=== PATIENT | female | born 2000 | race Caucasian/White ===

== ENCOUNTER 2024-08-17 15:18 | Outpatient (OUT) | payer BC, SELFPAY ==
--- OUTSIDE RECORDS SUMMARY | 2024-08-17 15:32 | XMS_ITS | CCD ---
Author Organization [facility] Care Team Providers Care Designer/Writer Name Role Phone Marylu MARLEY Ellen Froy Primary Care Provider MARYLU ELLEN L Primary Care Physician Rae Mendez Admitting Unavailable Rae Mendez Attending Unavailable Wale Guerrero Attending Unavailable Rae Mendez Attending Unavailable Kristopher GLASS Attending Unavailable Wale Guerrero Admitting Unavailable Wale Guerrero Attending Unavailable Yonley DO, Ellen L Primary Care Provider YONLEY, ELLEN L Referring Unavailable YONLEY, ELLEN L Primary Care Unavailable YONLEY, ELLEN L Referring Unavailable YONLEY, ELLEN L Primary Care Unavailable YONLEY, ELLEN L Attending Unavailable YONLEY, ELLEN L Referring Unavailable YONLEY, ELLEN L Primary Care Unavailable YONLEY, ELLEN L Referring Unavailable YONLEY, ELLEN L Primary Care Unavailable YONLEY, ELLEN L Attending Unavailable YONLEY, ELLEN L Referring Unavailable YONLEY, ELLEN L Primary Care Unavailable YONLEY, ELLEN L Referring Unavailable YONLEY, ELLEN L Primary Care Unavailable YONLEY, ELLEN L Referring Unavailable YONLEY, ELLEN L Primary Care Unavailable Yonley DO Ellen Primary Care Provider Allergies Allergy Classification Reported Allergen(s) Allergy Type Date of Onset Reaction(s) Facility (1 source) No Known Medication Allergies; Translations: [No Known Medication Allergies] Propensity to adverse reactions (disorder) [facility] Repository Medications Current Medications Medication Drug Class(es) Dates Sig (Normalized) Sig (Original) citalopram 10 mg oral tablet (7 sources) Serotonin Reuptake Inhibitor Start: 07-02-2022 take 1 tablet by mouth once daily citalopram (CELEXA) 10 MG tablet TAKE 1 TABLET BY MOUTH EVERY DAY 90 tablet 3 07/02/2022 Active Start: 04-02-2021 take 1 tablet by marcia th once daily citalopram (CELEXA) 10 MG tablet Take 1 tablet by mouth daily 90 tablet 1 04/02/2021 Active Ethinyl Estradiol / Ferrous fumarate / Norethindrone (1 source) Estrogen Start: 01-24-2021 take 1 tablet by mouth once daily PRAFUL FE 10/24 1-20 MG-MCG per tablet TAKE 1 TABLET BY MOUTH EVERY DAY 0 01/24/2021 Active etonogestrel 68 mg drug implant (1 source) Progestin End: 07-29-2024 etonogestrel-eluting 68 mg contraceptive implant 1 each by Implant route 1 (one) time. 07/29/2024 Discontinued (Therapy completed) levothyroxine sodium 0.05 mg oral tablet (11 sources) l-Thyroxine Start: 01-05-2024 take 1 tablet by mouth once daily levothyroxine (SYNTHROID) 50 MCG tablet TAKE 1 TABLET BY MOUTH DAILY 90 tablet 1 07/15/2024 Active Start: 03-12-2023 levothyroxine 50 mcg (0.05 mg) Tab Refills(s) 0 Start Date: 03/12/23 Status: Ordered Start: 11-20-2022 take 1 tablet by marcia th once daily levothyroxine (SYNTHROID) 50 MCG tablet Take 1 tablet by mouth daily 42 tablet 0 11/20/2022 Active propranolol hydrochloride 10 mg oral tablet (1 source) beta-Adrenergic Penny Start: 12-24-2022 take 1 tablet by mouth twice daily, then take 0.5 tablet by mouth twice daily propranolol (INDERAL) 10 MG tablet Take 1 tablet by mouth 2 times daily (Start with 1/2 tablet twice a day) 60 tablet 11 12/24/2022 Active Problems Active Problems Problem Classification Problem Date Documented Date Episodic/Chronic Anxiety disorders (8 sources) Anxiety about body function or health; Translations: [Other specified anxiety disorders] Onset: 02-20-2021 02-20-2021 Chronic Cardiac dysrhythmias (6 sources) Ventricular bigeminy; Translations: [Other specified cardiac arrhythmias] Onset: 12-17-2022 Chronic Conditions associated with dizziness or vertigo (2 sources) Lightheadedness; Translations: [Dizziness and giddiness] Episodic Malaise and fatigue (1 source) Fatigue; Translations: [Chronic fatigue, unspecified] Chronic Menstrual disorders (6 sources) Irregular periods; Translations: [Irregular menstruation, unspecified] Onset: 07-03-2022 Chronic Other complications of (4 sources) Spotting per vagina in ; Translations: [Spotting complicating , first trimester] 07-14-2024 Episodic Other complications of (2 sources) Spotting complicating , first trimester; Translations: [Spotting complicating , first trimester] Onset: 07-14-2024 Episodic Other complications of (2 sources) Blighted ovum; Translations: [Blighted ovum and nonhydatidiform mole] 07-21-2024 Episodic Other complications of (1 source) Blighted ovum and nonhydatidiform mole; Translations: [Blighted ovum and nonhydatidiform mole] Onset: 07-21-2024 Episodic Other lower respiratory disease (1 source) Snoring; Translations: [Snoring] Episodic Other nutritional; endocrine; and metabolic disorders (1 source) Obese class II; Translations: [Body mass index (BMI) 37.0-37.9, adult] Onset: 03-12-2023 Chronic Other nutritional; endocrine; and metabolic disorders (1 source) Obesity; Translations: [Other obesity due to excess calories] Onset: 03-12-2023 Chronic Other and delivery including normal (2 sources) ; Translations: [Encounter for supervision of normal , unspecified, unspecified trimester] 07-29-2024 Episodic Other screening for suspected conditions (not mental disorders or infectious disease) (1 source) Patient encounter status; Translations: [Encounter for screening for cardiovascular disorders] Episodic Other upper respiratory infections (1 source) Acute pharyngitis; Translations: [Acute pharyngitis, unspecified] Onset: 03-12-2023 Episodic Residual codes; unclassified (2 sources) Sleep apnea; Translations: [Sleep apnea, unspecified] Chronic Residual codes; unclassified (2 sources) Family history of diabetes mellitus; Translations: [Family history of diabetes mellitus] Episodic Residual codes; unclassified (1 source) Gestation period, 7 weeks; Translations: [Less than 8 weeks gestation of ] 07-29-2024 Episodic Thyroid disorders (8 sources) Acquired hypothyroidism; Translations: [Hypothyroidism, unspecified] Onset: 12-29-2022 Chronic Past or Other Problems Problem Classification Problem Date Documented Da te Episodic/Chronic Cardiac dysrhythmias (6 sources) Bradycardia; Translations: [Bradycardia, unspecified] Onset: 11-28-2022 Episodic Miscellaneous mental health disorders (5 sources) Anxiety about body function or health; Translations: [Other symptoms and signs involving emotional state] Onset: 02-20-2021 02-20-2021 Episodic Results Test Name Value Interpretation Reference Range Facility HCG ( test) Ql (U)o n 07-29-2024 Interpretation and review of laboratory results Abnormal [facility] Preg Test, Ur Positive [facility] Urinalysis macro (dipstick) panel (U)on 07-29-2024 Bilirubin, UA Negative Negative - 4(70) +++ mg/dL [facility] Blood, UA Positive Negative - 50 Amilcar/mcL [facility] Comment on above: trace Clarity, UA Clear [facility] re Color, UA Yellow [facility] Glucose, UA Negative Negative - 1999(110) ++++ mg/dL [facility] Interpretation and review of laboratory results Abnormal [facility] Ketones, UA Negative Negative - 160(16) ++++ mg/dL [facility] Leukocytes, UA Negative Negative - 500+++ Dylon/mcL [facility] Nitrite, UA Negative Negative - Positive [facility] pH, UA 7 5 - 9 [facility] e Protein, UA Negative Negative - 1999(20) ++++ mg/dL [facility] Spec Grav, UA 1.015 1 - 1.03 [facility] Urobilinogen, UA 0.2 0.2 - 12 mg/dL [facility] HCG, Quanton 07-21-2024 HCG, Quant 80162.0 mIU/mL High <5 [facility] Comment on above: Result Comment: Non-preg premeno <=5 Postmeno <=8 Male <=3 If HCG results do not concur with clinical observations, additional testing to confirm results is recommended. Performed By: #### B HCG #### [facility] [address] [place] [address] Computer Applications Engineer: Lincoln Clark MD US OB TRANSVAGINALon 024 US OB TRANSVAGINAL EXAM: US OB TRANSVAGINAL HISTORY: Spotting affecting in first trimester COMPARISON: Outside report from 07/15/2024 showed a gestational sac without pole or yolk sac. FINDINGS: Single live intrauterine gestation with crown-rump length of 6 weeks 1 day. Cardiac rate of fetus 111 bpm. Gestational sac contour normal. Uterus: 9.1 cm longitudinal by 4.5 x 6.7 cm with a subcentimeter fibroid incidentally noted which does not impinge on the gestational sac. Right ovary: 4.9 x 2.7 x 4.8 cm containing 2 small cysts measuring 2.6 and 2.4 cm. Left ovary: 2.6 x 2.7 x 2.1 cm. IMPRESSION: Single live intrauterine with estimated gestational age 6 weeks 1 day. This gives a sonographic FRANKLYN of 15 March 2025 Interpreted by: Glenn Walker Jr., MD Signed by: Glenn Walker Jr., MD 07/21/24 Final result Normal [facility] Single live intrauterine with estimated gestational age 6 weeks 1 day. This gives a sonographic FRANKLYN of 15 March 2025 [facility] RIS CONSOLIDATED EXAM: US OB TRANSVAGINAL HISTORY: Spotting affecting in first trimester COMPARISON: Outside report from 07/15/2024 showed a gestational sac without pole or yolk sac. FINDINGS: Single live intrauterine gestation with crown-rump length of 6 weeks 1 day. Cardiac rate of fetus 111 bpm. Gestational sac contour normal. Uterus: 9.1 cm longitudinal by 4.5 x 6.7 cm with a subcentimeter fibroid incidentally noted which does not impinge on the gestational sac. Right ovary: 4.9 x 2.7 x 4.8 cm containing 2 small cysts measuring 2.6 and 2.4 cm. Left ovary: 2.6 x 2.7 x 2.1 cm. [facility] RIS CONSOLIDATED Glenn Walker Jr., MD - 07/21/2024 EXAM: US OB TRANSVAGINAL HISTORY: Spotting affecting in first trimester COMPARISON: Outside report from 07/15/2024 showed a gestational sac without pole or yolk sac. FINDINGS: Single live intrauterine gestation with crown-rump length of 6 weeks 1 day. Cardiac rate of fetus 111 bpm. Gestational sac contour normal. Uterus: 9.1 cm longitudinal by 4.5 x 6.7 cm with a subcentimeter fibroid incidentally noted which does not impinge on the gestational sac. Right ovary: 4.9 x 2.7 x 4.8 cm containing 2 small cysts measuring 2.6 and 2.4 cm. Left ovary: 2.6 x 2.7 x 2.1 cm. IMPRESSION: Single live intrauterine with estimated gestational age 6 weeks 1 day. This gives a sonographic FRANKLYN of 15 March 2025 [facility] Radiology Study observation (narrative) [facility] US OB TRANSVAGINALOrdered By : Glenn Walker on 07-21-2024 [facility] Work Phone: hCG, Quantitative, on 07-21-2024 [place] [address].0 m[IU]/mL High NINF [facility] Comment on above: Non-preg premeno <=5 Postmeno <=8 Male <=3 If HCG results do not concur with clinical observations, additional testing to confirm results is recommended. Interpretation and review of laboratory results Abnormal [facility] US NON OB TRANSVAGINAL W DOP PLERon 07-19-2024 US NON OB TRANSVAGINAL W DOPPLER EXAMINATION: FIRST TRIMESTER PELVIC ULTRASOUND WITH DOPPLER 07/15/2024 TECHNIQUE: Transvaginal first trimester obstetric pelvic duplex ultrasound was performed with real-time imaging, color flow Doppler imaging, and spectral analysis. COMPARISON: None HISTORY: ORDERING SYSTEM PROVIDED HISTORY: Spotting affecting in first trimester TECHNOLOGIST PROVIDED HISTORY: This procedure can be scheduled via [employer]. with LMP 06/05, spotting FINDINGS: Uterus: Measures 7.6 x 3.6 x 6.0 cm. The uterus appears bicornuate. Gestational Sac(s): There is a solitary gestational sac within the right uterine horn, which is somewhat irregular in shape, with the mean sac diameter measuring 9.1 mm. However, there is no current evidence of an internal pole or yolk sac. Yolk Sac: Not identified Pole: Not identified [place] Rump Length: Not applicable Heart Rate: Not applicable Right ovary: Measures 5.8 x 2.9 x 4.6 cm Left ovary: Measures 2.7 x 1.7 x 2.6 cm Both ovaries demonstrate normal arterial and venous Doppler flow, without evidence of torsion, mass, or ectopic . There is a 3.1 x 3.1 x 3.0 cm simple follicular cyst within the right ovary. There is an additional 2.9 x 2.4 x 2.6 cm mildly complicated cystic lesion within the right ovary, likely a corpus luteum. Free fluid: None Measurements: Estimated gestational age by current ultrasound: Not applicable Estimated gestational age by LMP/prior ultrasound: 5 weeks 5 days Estimated Due Date: 03/12/2025 by LMP IMPRESSION: 1. Small irregular shaped intrauterine gestational sac, without current evidence of an internal pole or yolk sac. However, this could represent a very early normal , with it being too early to detect these structures at this time. A failed is also a consideration. Suggest appropriate clinical treatment, continued beta HCG follow-up, and a short-term follow-up ultrasound to ensure normal progression of . 2. Unremarkable sonographic appearance of the left ovary, without evidence of torsion, mass, or ectopic . 3. No evidence of right ovarian torsion or ectopic . Two cystic lesions within the right ovary likely reflect a combination of a benign follicular cyst and a corpus luteum. Interpreted by: Brice Austin MD Signed by: Brice Austin MD 07/19/24 Final result Normal [facility] HCG, Quanton 07-14-2024 HCG, Quant 4694.0 mIU/mL High <5 [facility] Comment on above: Result Comment: Non-preg premeno <=5 Postmeno <=8 Male <=3 If HCG results do not concur with clinical observations, additional testing to confirm results is recommended. Performed By: #### B HCG #### [facility] [address] [place] [address] Computer Applications Engineer: Lincoln Clark MD hCG, Quantitative, on 07-14-2024 HCG.beta subunit Qn 4694.0 m[IU]/mL High [facility] Comment on above: Non-preg premeno <=5 Postmeno <=8 Male <=3 If HCG results do not concur with clinical observations, additional testing to confirm results is recommended. Interpretation and review of laboratory results Abnormal [facility] HCG, Quanton 07-12-2024 HCG, Quant 3141.0 mIU/mL High <5 [facility] Comment on above: Result Comment: Non-preg premeno <=5 Postmeno <=8 Male <=3 If HCG results do not concur with clinical observations, additional testing to confirm results is recommended. Performed By: #### B HCG #### [facility] [address] [place] [address] Computer Applications Engineer: Lincoln Clark MD hCG, Quantitative, on 07-12-2024 HCG.beta subunit Qn 3141.0 m[IU]/mL High [facility] Comment on above: Non-preg premeno <=5 Postmeno <=8 Male <=3 If HCG results do not concur with clinical observations, additional testing to confirm results is recommended. Interpretation and review of laboratory results Abnormal [facility] Thyroid Stim. Horm.on 2023 Thyroid Stim. Horm. 1.59 uIU/mL Normal 0.30-5.00 [facility] Comment on above: Performed By: #### F T4 #### [address] [address] Computer Applications Engineer: Jayce Andrews MD #### TSH #### [facility] [address] [place] [address] Computer Applications Engineer: Lincoln Clark MD Thyroxine, Freeon 07-01-2024 Thyroxine, Free 1.1 ng/dL Normal 0.92-1.68 [facility] Comment on above: Performed By: #### F T4 #### [address] [address] Computer Applications Engineer: Jayce Andrews MD #### TSH #### [facility] [address] [place] [address] Computer Applications Engineer: Lincoln Clark MD Consenton 12-16-2023 Consent [id number] 4#1.00TIFF Normal [facility] Registrationon 12-16-2023 Registration [id number] 66#1.00TIFF Normal [facility] Registration [id number] 7#1.00TIFF Normal [facility] Basic Metabolic Profon 11-03 Anion gap [Moles/Vol] 11 mmol/L Normal 06-21 [facility] Comment on above: Performed By: #### C DP, TSH, BMP #### [facility] [address] [place] [address] Computer Applications Engineer: Lincoln Clark MD #### FT4 #### [address] [place] [address] Computer Applications Engineer: Jayce Andrews MD BUN/CRE Ratio 14 Normal - [facility] Comment on above: Performed By: #### C DP, TSH, BMP #### [facility] [address] [place] [address] Computer Applications Engineer: Lincoln Clark MD #### FT4 #### [facility] [address] [place], [place] [id number] Computer Applications Engineer: Jayce Andrews MD Calcium [Mass/Vol] 9.3 mg/dL Normal 8.6-10.4 [facility] Comment on above: Performed By: #### C DP, TSH, BMP #### [facility] [address] [place] [address] Computer Applications Engineer: Lincoln Clark MD #### FT4 #### [facility] [address] [place] [address] Computer Applications Engineer: Jayce Andrews MD Chloride [Moles/Vol] 104 mmol/L Normal 98-107 [facility] Comment on above: Performed By: #### C DP, TSH, BMP #### [facility] [address] [place], [place] [id number] Computer Applications Engineer: Lincoln lCark MD #### FT4 #### [facility] [address] [place] [address] Computer Applications Engineer: Jayce Andrews MD CO2 [Moles/Vol] 24 mmol/L Normal 20-31 [facility] Comment on above: Performed By: #### C DP, TSH, BMP #### [facility] [address] [place], [place] [id number] Computer Applications Engineer: Lincoln Clark MD #### FT4 #### [facility] [address] [place] [address] Computer Applications Engineer: Jayce Andrews MD Creatinine [Mass/Vol] 0.8 mg/dL Normal 0.5-0.9 [facility] Comment on above: Performed By: #### C DP, TSH, BMP #### [facility] [address] [place], [place] [id number] Computer Applications Engineer: Lincoln Clark MD #### FT4 #### [facility] [address] [place] [address] Computer Applications Engineer: Jayce Andrews MD GFR/1.73 sq M.predicted among non-blacks MDRD (S/P/Bld) [Vol rate/Area] mL/min/{1.73_m2} Normal >60 [facility] Comment on above: Result Comment: These results are not intended for use in patients <18 years of age. eGFR results are calculated without a race factor using the 2020 CKD-EPI equation. Careful clinical correlation is recommended, particularly when comparing to results calculated using previous equations. The CKD-EPI equation is less accurate in patients with extremes of muscle mass, extra-renal metabolism of creatine, excessive creatine ingestion, or following therapy that affects renal tubular secretion. Performed By: #### C DP TSH, BMP #### [facility] [address] [place], [place] [id number] Computer Applications Engineer: Lincoln Clark MD #### FT4 #### [address] [id number] Computer Applications Engineer: Jayce Andrews MD Glucose [Mass/Vol] 102 mg/dL High 70-99 [facility] Comment on above: Performed By: #### C DP TSH, BMP #### [facility] [address] [place] [address] Computer Applications Engineer: Lincoln Clark MD #### FT4 #### [address] [id number] Computer Applications Engineer: Jayce Andrews MD Potassium [Moles/Vol] 4.6 mmol/L Normal 3.7-5.3 [facility] Comment on above: Performed By: #### C DP, TSH, BMP #### [facility] [address] [place], [place] [id number] Computer Applications Engineer: Lincoln Clark MD #### FT4 #### [address] [address] Computer Applications Engineer: Jayce Andrews MD Sodium [Moles/Vol] 139 mmol/L Normal 135-144 [facility] Comment on above: Performed By: #### C DP, TSH, BMP #### [facility] [address] [place], [place] [id number] Computer Applications Engineer: Lincoln Clark MD #### FT4 #### [address] [address] Computer Applications Engineer: Jayce Andrews MD Urea nitrogen [Mass/Vol] 11 mg/dL Normal 6-20 [facility] Comment on above: Performed By: #### C DP, TSH, BMP #### [facility] [address] [place] [address] Computer Applications Engineer: Lincoln Clark MD #### FT4 #### [address] [id number] Computer Applications Engineer: Jayce Andrews MD CBC with Diffon 11-03-2023 Abs. Basophil 0.03 k/uL Normal 0.00-0.20 [facility] Comment on above: Performed By: #### C DP, TSH, BMP #### [facility] [address] [place] [id number] ( Computer Applications Engineer: Lincoln Clark MD #### FT4 #### [address] [id number] Computer Applications Engineer: Jayce Andrews MD Abs.Imm.Granulocyte 0.01 k/uL Normal 0.00-0.30 [facility] Comment on above: Performed By: #### C DP, TSH, BMP #### [facility] [address] [place] [address] Computer Applications Engineer: Lincoln Clark MD #### FT4 #### [address] [id number] Computer Applications Engineer: Jayce Andrews MD Abs.Neutrophil (Seg) 3.61 k/uL Normal 2.5-7.0 [facility] Comment on above: Performed By: #### C DP, TSH, BMP #### [facility] [address] [place] [address] Computer Applications Engineer: Lincoln Clark MD #### FT4 #### [address] [id number] Computer Applications Engineer: Jayce Andrews MD Basophils/100 WBC (Bld) 0 % Normal 0-2 [facility] Comment on above: Performed By: #### C DP, TSH, BMP #### [facility] [address] [place] [address] Computer Applications Engineer: Lincoln Clark MD #### FT4 #### [address] [id number] Computer Applications Engineer: Jayce Andrews MD Eosinophils (Bld) [#/Vol] 0.13 10*3/uL Normal 0.00-0.40 [facility] Comment on above: Performed By: #### C DP, TSH, BMP #### [facility] [address] [place] [address] Computer Applications Engineer: Lincoln Clark MD #### FT4 #### [address] [id number] Computer Applications Engineer: Jayce Andrews MD Eosinophils/100 WBC (Bld) 2 % Normal 0-5 [facility] Comment on above: Performed By: #### C DP, TSH, BMP #### [facility] [address] [place] [address] Computer Applications Engineer: Lincoln Clark MD #### FT4 #### [address] [id number] Computer Applications Engineer: Jayce Andrews MD Erythrocyte distribution width (RBC) [Ratio] 11.8 % Low 12.1-15.2 [facility] Comment on above: Performed By: #### C DP, TSH, BMP #### [facility] [address] [place] [address] Computer Applications Engineer: Lincoln Clark MD #### FT4 #### [address] [id number] Computer Applications Engineer: Jayce Andrews MD Hematocrit (Bld) [Volume fraction] 37.1 % Normal 36.0-46.0 [facility] Comment on above: Performed By: #### C DP, TSH, BMP #### [facility] [address] [place], [place] [phone] Computer Applications Engineer: Lincoln Clark MD #### FT4 #### [facility] [address] [place], [place] [id number] Computer Applications Engineer: Jayce Andrews MD Hemoglobin (Bld) [Mass/Vol] 13.5 g/dL Normal 12.0-16.0 [facility] Comment on above: Performed By: #### C DP, TSH, BMP #### [facility] [address] [place], [place] [id number] Computer Applications Engineer: Lincoln Clark MD #### FT4 #### [address] [place], [place] [id number] Computer Applications Engineer: Jayce Andrews MD Immature granulocytes/100 WBC (Bld) 0 % Normal 0-5 [facility] Comment on above: Performed By: #### C DP, TSH, BMP #### [facility] [address] [place] [address] Computer Applications Engineer: Lincoln Clark MD #### FT4 #### [address] [place], [place] [id number] Computer Applications Engineer: Jayce Andrews MD Lymphocytes (Bld) [#/Vol] 3.25 10*3/uL Normal 1.00-4.80 [facility] Comment on above: Performed By: #### C DP, TSH, BMP #### [facility] Lab [address] [place], [place] [id number] Computer Applications Engineer: Lincoln Clark MD #### FT4 #### [address] [id number] Computer Applications Engineer: Jayce Andrews MD Lymphocytes/100 WBC (Bld) 43 % High 15-40 [facility] Comment on above: Performed By: #### C DP, TSH, BMP #### [facility] Lab [address] [place] [address] Computer Applications Engineer: Lincoln Clark MD #### FT4 #### [address] [place] [address] Computer Applications Engineer: Jayce Andrews MD MCH (RBC) [Entitic mass] 31.2 pg Normal 26.0-34.0 [facility] Comment on above: Performed By: #### C DP, TSH, BMP #### [facility] Lab [address] [place] [address] Computer Applications Engineer: Lincoln Clark MD #### FT4 #### [place] [id number] Computer Applications Engineer: Jayce Andrews MD MCHC (RBC) [Mass/Vol] 36.4 g/dL Normal 31.0-37.0 [facility] Comment on above: Performed By: #### C DP, TSH, BMP #### [facility] Lab [address] [place] [address] Computer Applications Engineer: Lincoln Clark MD #### FT4 #### [place] [id number] Computer Applications Engineer: Jayce Andrews MD MCV (RBC) [Entitic vol] 85.7 fL Normal 80.0-100.0 [facility] Comment on above: Performed By: #### C DP, TSH, BMP #### [facility] Lab [address] [place] [address] Computer Applications Engineer: Lincoln Clark MD #### FT4 #### [address] [address] Computer Applications Engineer: Jayce Andrews MD Monocytes (Bld) [#/Vol] 0.53 10*3/uL Normal 0.00-1.00 [facility] Comment on above: Performed By: #### C DP, TSH, BMP #### [facility] Lab [address] [place], [place] [id number] Computer Applications Engineer: Lincoln Clark MD #### FT4 #### [facility] [address] [place], [place] [id number] Computer Applications Engineer: Jayce Andrews MD Monocytes/100 WBC (Bld) 7 % Normal 4-8 [facility] Comment on above: Performed By: #### C DP, TSH, BMP #### [facility] Lab [address] [place], [place] [id number] Computer Applications Engineer: Lincoln Clark MD #### FT4 #### [address] [id number] Computer Applications Engineer: Jayce Andrews MD Neutrophil (Seg) 48 % Normal 47-75 [facility] Comment on above: Performed By: #### C DP, TSH, BMP #### [facility] [address] [place], [place] [id number] Computer Applications Engineer: Lincoln Clark MD #### FT4 #### [address] [id number] Computer Applications Engineer: Jayce Andrews MD Platelet mean volume (Bld) [Entitic vol] 10.4 fL Normal 6.0-12.0 [facility] Comment on above: Performed By: #### C DP, TSH, BMP #### [facility] Lab [address] [place], [place] [id number] Computer Applications Engineer: Lincoln Clark MD #### FT4 #### [address] [address] Computer Applications Engineer: Jayce Andrews MD Platelets (Bld) [#/Vol] 254 10*3/uL Normal 140-450 [facility] Comment on above: Performed By: #### C DP, TSH, BMP #### [facility] [address] [place] [address] Computer Applications Engineer: Lincoln Clark MD #### FT4 #### [address] [place], [place] [id number] Computer Applications Engineer: Jayce Andrews MD RBC (Bld) [#/Vol] 4.33 10*6/uL Normal 4.00-5.20 [facility] Comment on above: Performed By: #### C DP, TSH, BMP #### [facility] [address] [place] [address] Computer Applications Engineer: Lincoln Clark MD #### FT4 #### [place] [id number] Computer Applications Engineer: Jayce Andrews MD WBC (Bld) [#/Vol] 7.6 10*3/uL Normal 3.5-11.0 [facility] Comment on above: Performed By: #### C DP, TSH, BMP #### [facility] Lab [address] [place] [id number] Computer Applications Engineer: Lincoln Clark MD #### FT4 #### [place] [address] Computer Applications Engineer: Jayce Andrews MD Thyroid Stim. Horm.on 2023 Thyroid Stim. Horm. 2.02 uIU/mL Normal 0.30-5.00 [facility] Comment on above: Performed By: #### C DP, TSH, BMP #### [facility] [address] [place] [address] Computer Applications Engineer: Lincoln Clark MD #### FT4 #### [place] [id number] Computer Applications Engineer: Jayce Andrews MD Thyroxine, Freeon 11-03-2023 Thyroxine, Free 1.4 ng/dL Normal 0.93-1.70 [facility] Comment on above: Performed By: #### C DP, TSH, BMP #### [facility] Lab [address] [place] [address] Computer Applications Engineer: Lincoln Clark MD #### FT4 #### [facility] [address] [place] [address] Computer Applications Engineer: MD Komal [place] Urineon 07-11-2023 Bacteria identified Cx Nom (U) Microbiology PROCEDURE: Urine Culture [R1] SOURCE: U CleanCatch BODY SITE: COLLECTED DATE/TIME: 07/09/2023 11:26 EDT RECEIVED DATE/TIME: 07/09/2023 15:22 EDT START DATE/TIME: 07/09/2023 15:22 EDT FREE TEXT SOURCE: Cesar LANGFORD, Wale Guerrero PA-C, Wale Sheikh FINAL REPORTS Final Report [] Verified Date/Time: 07/11/2023 09:31 EDT 20,000 cfu/ml Escherichia coli isolated. >100,000 cfu/ml Staphylococcus saprophyticus Presumptive isolated. Susceptibility testing no longer performed. This organism susceptible to most agents used for UTI treatment per CLSI I534-O16. SUSCEPTIBILITY RESULTS LEGEND: S=Susceptible, N/R=Not Reported, Blank=Data not available, or drug not advisable or tested, I=Intermediate, ESBL=Extended spectrum beta-lactamase, R=Resistant, TFG=Thymidine-depend ent strain, REMINGTON=Beta-lactamase positive, BRIAN=mcg/m;(mg/L), S*=Predicted susceptible interp, R*=Predicted resistant interp EC Antibiotic BIRAN Dilutn BRIAN Interp Amikacin <=16 S Ampicillin <=8 S Ampicillin/ <=8/4 S Sulbactam Aztreonam <=4 S Cefazolin <=2 S Cefepime <=2 S Cefoxitin <=8 S Ceftazidime <=1 S Ceftazidime/ <=8 S Avibactam Ceftriaxone <=1 S Ciprofloxacin <=1 S Ertapenem <=0.5 S Gentamicin <=4 S Levofloxacin <=2 S Meropenem <=1 S Nitrofurantoin <=32 S Piperacillin/ <=16 S Tazobactam Tetracycline <=4 S Tigecycline <=2 S Tobramycin <=4 S Trimethoprim/ <=2/38 S Sulfa Performing Locations R1: This test was performed at: [facility], [address] [place] [address], [facility]- , , [facility] Comment on above: Performed By: #### [id number] #### [facility] [address] [place] [address] Family Medicine Office/Clini c Noteon 07-09-2023 Family Medicine Office/Clinic Note Chief Complaint EST uti HPI Staff Shon, 23 yo female here today with UTI symptoms Onset-this morning Frequency- yes Urgency- yes Small volume void- yes Dysuria- no Pressure- yes Back pain- no Nocturia- no Fever/chills- no Nausea/vomiting- no UTI or other reason for antbx's last 30 days- no History of Present Illness I have reviewed and verified the staff HPI to be accurate for this encounter. Portions of this record have been created with voice recognition software. Occasional wrong-word or ?ijamg-i-styd? substitutions may have occurred due to the inherent limitations of voice recognition software. 23 yo female presents today with cc of possible UTI. The patient states she awoke with symptoms this morning of urinary urgency frequency and bladder pressure she denies any burning with urination denies hematuria denies any lower back pain flank pain or history of kidney stones. She states last menstrual cycle was the through 25 June. Denies any chance of at this time. Denies any nausea vomiting diarrhea or abdominal pain with her symptoms. Denies fever chills or weakness. She has no other concerns at this time. Review of Systems PHQ Score Initial Depression Screen Score: 0 ROS negative unless otherwise stated in HPI. Physical Exam Vitals & Measurements T: 36.9 ?C(Oral) HR: 84(Peripheral) BP: 118/76 SpO2: 99% HT: 65 in HT: 166 cm WT: 90.5 kg WT: 199.1 lb BMI: 32.84 General: Pleasant obese female, no acute distress Eyes: not assessed Ears: not assessed Nose: not addressed Mouth: not assessed Neck: not assessed Lungs: Lung sounds are clear bilaterally. No wheezing, rhonchi, or crackles on exam. Cardio: S1, S2, regular rhythm, no murmurs, gallops, or rubs. Abdomen: Bowel sounds are present x4 quadrants. Abdomen is soft, nontender, nondistended. No rigidity rebound or guarding on exam. Musculoskeletal: Normal alignment of spinal column. No step-offs. No CVA tenderness. Extremity: Patient was back in the convenient care on her own without gait abnormality. Neurologic: not assessed Skin: No rashes, ulcerations, or suspicious lesions Mental Status: Alert and oriented x3. Normal mood and affect Assessment/Plan 1. UTI (urinary tract infection) (N39.0: Urinary tract infection, site not specified) UA with large leukocytes, large blood. Will treat with keflex 500mg tid x 7 days. PRN pyridium rx sent for symptomatic tx. Finish course of ATB. Fluids/rest. Will cx urine and notify of results in 3-5 days. Fu with PCP if not improving over next 3-4 days with ATB or worsening. Patient and/or parent verbalized understanding of tx plan. Ordered: cephalexin, 500 mg = 1 cap(s), Oral, q8hr, X 7 day(s), # 21 cap(s), Refills(s) 0, Pharmacy: [facility], 166, cm, 07/09/23 9:58:00 EDT, Height/Length Dosing, 90.5, kg, 07/09/23 9:58:00 EDT, Weight Dosing phenazopyridine, 100 mg = 1 tab(s), Oral, TID, X 3 day(s), # 9 tab(s), Refills(s) 0, Pharmacy: [facility], 166, cm, 07/09/23 9:58:00 EDT, Height/Length Dosing, 90.5, kg, 07/09/23 9:58:00 EDT, Weight Dosing 2. Urine frequency (R35.0: Frequency of micturition) see above Ordered: cephalexin, 500 mg = 1 cap(s), Oral, q8hr, X 7 day(s), # 21 cap(s), Refills(s) 0, Pharmacy: [facility], 166, cm, 07/09/23 9:58:00 EDT, Height/Length Dosing, 90.5, kg, 07/09/23 9:58:00 EDT, Weight Dosing phenazopyridine, 100 mg = 1 tab(s), Oral, TID, X 3 day(s), # 9 tab(s), Refills(s) 0, Pharmacy: [facility], 166, cm, 07/09/23 9:58:00 EDT, Height/Length Dosing, 90.5, kg, 07/09/23 9:58:00 EDT, Weight Dosing Urnls Dip Stick Non-Auto w/o Micrscpy POC 80921 3. BMI 32.0-32.9,adult (Z68.32: Body mass index [BMI] 32.0-32.9, adult) The standard range for ages 18 and older is >=18.5 and < 25 kg/m2. Your BMI today was above this range, this falls in the overweight to obese category and there are medical benefits to weight loss. We can offer counselling, referral, and/or medical support in addressing this problem. Your BMI and weight management will be followed at subsequent visits. Ordered: cephalexin, 500 mg = 1 cap(s), Oral, q8hr, X 7 day(s), # 21 cap(s), Refills(s) 0, Pharmacy: [facility], 166, cm, 07/09/23 9:58:00 EDT, Height/Length Dosing, 90.5, kg, 07/09/23 9:58:00 EDT, Weight Dosing phenazopyridine, 100 mg = 1 tab(s), Oral, TID, X 3 day(s), # 9 tab(s), Refills(s) 0, Pharmacy: [facility], 166, cm, 07/09/23 9:58:00 EDT, Height/Length Dosing, 90.5, kg, 07/09/23 9:58:00 EDT, Weight Dosing Follow-up With When Contact [place] [address]- Additional Instructions: Patient Education BMI for Adults Urinary Tract Infection, Adult Problem List/Past Medical History Ongoing Acquired hypothyroidism Anxiety about body function or health Bradycardia Family history of diabetes mellitus Irregular periods Sleep ap (more content not included)... Normal [facility] Comment on above: Result Comment: Elec tronically Signed By: Cesar LANGFORD, Wale Sheikh\.br\Date and Time Signed: 07/09/23 10:15 EDT Patient Educationon 07-09-20 Patient Education Nutrition BMI for Adults What is BMI? Body mass index (BMI) is a number that is calculated from a person's weight and height. BMI can help estimate how much of a person's weight is composed of fat. BMI does not measure body fat directly. Rather, it is an alternative to procedures that directly measure body fat, which can be difficult and expensive. BMI can help identify people who may be at higher risk for certain medical problems. What are BMI measurements used for? BMI is used as a screening tool to identify possible weight problems. It helps determine whether a person is obese, overweight, a healthy weight, or underweight. BMI is useful for: ? Identifying a weight problem that may be related to a medical condition or may increase the risk for medical problems. ? Promoting changes, such as changes in diet and exercise, to help reach a healthy weight. BMI screening can be repeated to see if these changes are working. How is BMI calculated? BMI involves measuring your weight in relation to your height. Both height and weight are measured, and the BMI is calculated from those numbers. This can be done either in [place] or metric measurements. Note that charts and online BMI calculators are available to help you find your BMI quickly and easily without having to do these calculations yourself. To calculate your BMI in [place] measurements: 1. Measure your weight in pounds (lb). 2. Multiply the number of pounds by 703. ? For example, for a person who weighs 180 lb, multiply that number by 703, which equals 126,540. 3. Measure your height in inches. Then multiply that number by itself to get a measurement called inches squared. ? For example, for a person who is 70 inches tall, the inches squared measurement is 70 inches x 70 inches, which equals 4,900 inches squared. 4. Divide the total from step 2 (number of lb x 703) by the total from step 3 (inches squared): 126,540 ? 4,900 = 25.8. This is your BMI. To calculate your BMI in metric measurements: 1. Measure your weight in kilograms (kg). 2. Measure your height in meters (m). Then multiply that number by itself to get a measurement called meters squared. ? For example, for a person who is 1.75 m tall, the meters squared measurement is 1.75 m x 1.75 m, which is equal to 3.1 meters squared. 3. Divide the number of kilograms (your weight) by the meters squared number. In this example: 70 ? 3.1 = 22.6. This is your BMI. What do the results mean? BMI charts are used to identify whether you are underweight, normal weight, overweight, or obese. The following guidelines will be used: ? Underweight: BMI less than 18.5. ? Normal weight: BMI between 18.5 and 24.9. ? Overweight: BMI between 25 and 29.9. ? Obese: BMI of 30 or above. Keep these notes in mind: ? Weight includes both fat and muscle, so someone with a muscular build, such as an athlete, may have a BMI that is higher than 24.9. In cases like these, BMI is not an accurate measure of body fat. ? To determine if excess body fat is the cause of a BMI of 25 or higher, further assessments may need to be done by a health care provider. ? BMI is usually interpreted in the same way for men and women. Where to find more information For more information about BMI, including tools to quickly calculate your BMI, go to these websites: ? Centers for Disease Control and Prevention: www.cdc.gov ? [place] Heart Association: www.heart.org ? National Heart, Lung, and Blood [place]: www.nhlbi.nih.gov Summary ? Body mass index (BMI) is a number that is calculated from a person's weight and height. ? BMI may help estimate how much of a person's weight is composed of fat. BMI can help identify those who may be at higher risk for certain medical problems. ? BMI can be measured using [place] measurements or metric measurements. ? BMI charts are used to identify whether you are underweight, normal weight, overweight, or obese. This information is not intended to replace advice given to you by your health care provider. Make sure you discuss any questions you have with your health care provider. Document Revised: 06/13/2020 Document Reviewed: 04/20/2020 [employer] Patient Education ? 2022 [employer]. Obstetrics and Gynecology Urinary Tract Infection, Adult A urinary tract infection (UTI) is an infection of any part of the urinary tract. The urinary tract includes the kidneys, ureters, bladder, and urethra. These organs make, store, and get rid of urine in the body. An upper UTI affects the ureters and kidneys. A lower UTI affects the bladder and urethra. What are the causes? Most urinary tract infections are caused by bacteria in your genital area around your urethra, where urine leaves your body. These bacteria grow and cause inflammation of your urinary tract. What increases the risk? You are more likely to develop this condition if: (more content not included)... Normal [facility] Provider Letteron 03-19-2023 Provider Letter March 19, 2023 SHON BLACKWELL [address] [place] [id number] : 2000 Dear Shon, We have been trying to reach you with no success. It is important that you return our call regarding your test results upon receiving this letter. Also, at the time of your call, please provide us with your current information. Thank you for your prompt attention to this matter. Sincerely, [address], [place] [address] Hallie Fofana [facility] Family Medicine Office/Clini c [place] 03-12-2023 Family Medicine Office/Clinic Note Chief Complaint [employer] sore throat, BA HPI Staff Pt 23 yo female presents with sore throat, bodyaches, patient present for sore throat, onset yesterday headache- yes sinus congestion- yes swollen nodes- no red/ white spots- white cough- no ear pain- yes left fever/chills- chills body aches- yes nausea/ vomiting- nausea allergies- yes medication taken- no History of Present Illness I have reviewed and verified the staff HPI to be accurate for this encounter. Portions of this record may have been created with voice recognition artificial intelligence software, specifically Musikki, PowerDMS and or Metabolomx. Substitutions may have occurred due to the inherent limitations of voice recognition and artificial intelligence software. Review of Systems PHQ Score Initial Depression Screen Score: 0 Physical Exam Vitals & Measurements T: 37.3 ?C(Oral) HR: 66(Peripheral) BP: 128/84 SpO2: 98% HT: 65 in HT: 166 cm WT: 102.2 kg WT: 224.84 lb BMI: 37.09 General: _Pleasant, overweight female in no acute distress. Eyes: _Patient does wear corrective lenses. Ears: No deformity or lesion of external ear. Canals and TM appear normal bilaterally. TM?s intact, not inflamed, with normal light reflex. Hearing grossly normal to conversational speech Nose: mild nasal mucosa inflammation and edema Mouth: Mucous membranes moist. Normal oropharynx, and posterior pharynx without lesions or exudates. Tongue normal. Uvula midline. Mild erythema of the posterior pharynx. Tonsils 2+ with very mild exudate noted bilaterally. No trismus or drooling. Neck: no adenopathy Lungs: Normal respiratory effort and clear to auscultation Cardio: regular rate and rhythm, no murmur Mental Status: Alert and oriented x3. Normal mood and affect Assessment/Plan 1. Sore throat (J02.9: Acute pharyngitis, unspecified) Rapid strep -. Patient does states she has a history of tonsil stones, which I am suspicious for at this time. However, given exam will send strep cx to confirm- will call with results in 3-5 days. If any GAS growth, will rx appropriate antibiotic. Discussed otherwise consistent with viral illness, typical duration 7-14 days. Fluids/rest, PRN tylenol/ibuprofen for pain and/or fever. May use salt water gargles and otc lozenges for pain. Fu with PCP if cx negative and not improving over next 10-14 days. Seek medical attention immediately for any increased difficulty swallowing, opening mouth, or difficulty managing oral secretions. Patient verbalized understanding of tx plan. Ordered: Group A Strep by PCR Rapid Strep POC 10232 2. BMI 37.0-37.9, adult (Z68.37: Body mass index [BMI] 37.0-37.9, adult) The standard range for ages 18 and older is >=18.5 and < 25 kg/m2. Your BMI today was above this range, this falls in the overweight to obese category and there are medical benefits to weight loss. We can offer counselling, referral, and/or medical support in addressing this problem. Your BMI and weight management will be followed at subsequent visits. 3. Obesity due to excess calories (E66.09: Other obesity due to excess calories) See #2. Diet/exercise. Follow-up With When Contact Information [place] [address]- Additional Instructions: Patient Education Pharyngitis BMI for Adults Problem List/Past Medical History Ongoing Acquired hypothyroidism Anxiety about body function or health Bradycardia Family history of diabetes mellitus Irregular periods Sleep apnea Ventricular bigeminy Historical No qualifying data Medications levothyroxine 50 mcg (0.05 mg) Tab Allergies No Known Allergies No Known Medication Allergies Social History Tobacco - Denies Tobacco Use, 03/12/2023 Never (less than 100 in lifetime) Tobacco Use:. Never Smokeless Tobacco Use:., 03/12/2023 Immunizations Vaccine Date Status Comments SARS-CoV-2 mRNA (tomichaeleran 5y-11y) vac - Not Given Postpone due to refusal influenza virus vaccine, inactivated 11/06/2019 Recorded varicella virus vaccine 06/01/2019 Recorded hepatitis B adult vaccine 06/01/2019 Recorded meningococcal conjugate vaccine 06/23/2018 Recorded 2023-03-12: VIS DATE: 01/03/2016 meningococcal conjugate vaccine 05/09/2016 Recorded diphtheria/pertussis , acel/tetanus adult 07/06/2013 Recorded poliovirus vaccine, inactivated 04/22/2006 Recorded measles/mumps/rubell a virus vaccine 04/22/2006 Recorded DTaP, unspecified formulation 04/22/2006 Recorded Hib, unspecified formulation 07/24/2004 Recorded DTaP, unspecified formulation 07/24/2004 Recorded haemophilus b conj (PRP-OMP) vaccine 07/06/2004 Recorded varicella virus vaccine 05/25/2002 Recorded poliovirus vaccine, inactivated 05/25/2002 Recorded measles/mumps/rubell a virus vaccine 05/25/2002 Recorded hepatitis B pediatric vaccine 05/25/2002 Recorded Hib, unspecified formulation 05/25/2002 Recorded DTaP, unspecified for (more content not included)... Normal [facility] Comment on above: Result Comment: Elec tronically Signed By: RENAN Mendez APRN, Rae Wilson\.br\Date and Time Signed: 03/12/23 11:57 EDT Grp A Strp PCRon 03-12-2023 Group A Strep Negative Normal [facility] Comment on above: Result Comment: Test ing performed using DNA amplification. Performed By: #### 1 [id number] #### [facility] [address] [place] [address] Grp A Strp Intrl Ctrl Pass Normal [facility] Comment on above: Performed By: #### 1 [id number] #### [facility] [address] [place] [address] Patient Educationon 03-12-20 Patient Education Infectious Disease Pharyngitis Pharyngitis is inflammation of the throat (pharynx). It is a very common cause of sore throat. Pharyngitis can be caused by a bacteria, but it is usually caused by a virus. Most cases of pharyngitis get better on their own without treatment. What are the causes? This condition may be caused by: ? Infection by viruses (viral). Viral pharyngitis spreads easily from person to person (is contagious) through coughing, sneezing, and sharing of personal items or utensils such as cups, forks, spoons, and toothbrushes. ? Infection by bacteria (bacterial). Bacterial pharyngitis may be spread by touching the nose or face after coming in contact with the bacteria, or through close contact, such as kissing. ? Allergies. Allergies can cause buildup of mucus in the throat (post-nasal drip), leading to inflammation and irritation. Allergies can also cause blocked nasal passages, forcing breathing through the mouth, which dries and irritates the throat. What increases the risk? You are more likely to develop this condition if: ? You are 5?24 years old. ? You are exposed to crowded environments such as daycare, school, or dormitory living. ? You live in a cold climate. ? You have a weakened disease-fighting (immune) system. What are the signs or symptoms? Symptoms of this condition vary by the cause. Common symptoms of this condition include: ? Sore throat. ? Fatigue. ? Low-grade fever. ? Stuffy nose (nasal congestion) and cough. ? Headache. Other symptoms may include: ? Glands in the neck (lymph nodes) that are swollen. ? Skin rashes. ? Plaque-like film on the throat or tonsils. This is often a symptom of bacterial pharyngitis. ? Vomiting. ? Red, itchy eyes (conjunctivitis). ? Loss of appetite. ? Joint pain and muscle aches. ? Enlarged tonsils. How is this diagnosed? This condition may be diagnosed based on your medical history and a physical exam. Your health care provider will ask you questions about your illness and your symptoms. A swab of your throat may be done to check for bacteria (rapid strep test). Other lab tests may also be done, depending on the suspected cause, but these are rare. How is this treated? Many times, treatment is not needed for this condition. Pharyngitis usually gets better in 3?4 days without treatment. Bacterial pharyngitis may be treated with antibiotic medicines. Follow these instructions at home: Medicines ? Take bdnl-cck-saostma and prescription medicines only as told by your health care provider. ? If you were prescribed an antibiotic medicine, take it as told by your health care provider. Do not stop taking the antibiotic even if you start to feel better. ? Use throat sprays to soothe your throat as told by your health care provider. ? Children can get pharyngitis. Do not give your child aspirin because of the association with Bean's syndrome. Managing pain To help with pain, try: ? Sipping warm liquids, such as broth, herbal tea, or warm water. ? Eating or drinking cold or frozen liquids, such as frozen ice pops. ? Gargling with a mixture of salt and water 3?4 times a day or as needed. To make salt water, completely dissolve ??1 tsp (3?6 g) of salt in 1 cup (237 mL) of warm water. ? Sucking on hard candy or throat lozenges. ? Putting a cool-mist humidifier in your bedroom at night to moisten the air. ? Sitting in the bathroom with the door closed for 5?10 minutes while you run hot water in the shower. General instructions ? Do not use any products that contain nicotine or tobacco. These products include cigarettes, chewing tobacco, and vaping devices, such as e-cigarettes. If you need help quitting, ask your health care provider. ? Rest as told by your health care provider. ? Drink enough fluid to keep your urine pale yellow. How is this prevented? To help prevent becoming infected or spreading infection: ? Wash your hands often with soap and water for at least 20 seconds. If soap and water are not available, use hand fertilizer loader. ? Do not touch your eyes, nose, or mouth with unwashed hands, and wash hands after touching these areas. ? Do not share cups or eating utensils. ? Avoid close contact with people who are sick. Contact a health care provider if: ? You have large, tender lumps in your neck. ? You have a rash. ? You cough up green, yellow-brown, or bloody mucus. Get help right away if: ? Your neck becomes stiff. ? You drool or are unable to swallow liquids. ? You cannot drink or take medicines without vomiting. ? You have severe pain that does not go away, even after you take medicine. ? You have trouble breathing, and it is not caused by a stuffy nose. ? You have new pain and swelling in your joints such as the knees, ankles, wrists, or elbows. These symptoms may represent a serious problem that is a (more content not included)... Normal [facility] C-Reactive Proteinon 03-27-2 023 CRP High sensitivity method [Mass/Vol] mg/L 0.0 - 5.0 mg/L [facility] CBC with Auto Differentialon 12-29-2022 Absolute Eos # 0.20 [facility] Absolute Lymph # 2.90 [facility] Absolute [place] # 0.60 [facility] Basophils (Bld) [#/Vol] 0.10 10*3/uL [facility] Basophils/100 WBC (Bld) 1 % 0 - 2 % B ON [facility] Differential Type YES [facility] Eosinophils/100 WBC (Bld) 1 % 0 - 5 % [facility] Hematocrit (Bld) [Volume fraction] 42.0 % 36 - 46 % [facility] Hemoglobin (Bld) [Mass/Vol] 14.5 g/dL 12.0 - 16.0 g/dL [facility] Interpretation and review of laboratory results Abnormal [facility] Lymphocytes/100 WBC (Bld) 25 % 15 - 40 % [facility] MCH (RBC) [Entitic mass] 31.1 pg 26 - 34 pg [facility] MCHC (RBC) [Mass/Vol] 34.5 g/dL 31 - 37 g/dL B ON [facility] MCV (RBC) [Entitic vol] 90.2 fL 80 - 100 fL [facility] Monocytes/100 WBC (Bld) 5 % 4 - 8 % B ON [facility] Platelet distribution width (Bld) [Ratio] 12.3 % 12.1 - 15.2 % [facility] Platelets (Bld) [#/Vol] 258 10*3/uL [facility] RBC (Bld) [#/Vol] 4.66 10*6/uL 4.0 - 5.2 m/uL [facility] Segmented neutrophils/100 WBC (Bld) 68 % 47 - 75 % [facility] Segs Absolute 7.90 High [facility] WBC (Bld) [#/Vol] 11.6 10*3/uL [facility] Comprehensive Metabolic Pane yousif 12-29-2022 Albumin [Mass/Vol] 4.6 g/dL 3.5 - 5.2 g/dL [facility] ALP [Catalytic activity/Vol] 56 U/L 35 - 104 U/L [facility] ALT [Catalytic activity/Vol] 30 U/L 5 - 33 U/L [facility] Anion gap [Moles/Vol] 11 mmol/L 9 - 17 mmol/L [facility] AST [Catalytic activity/Vol] 20 U/L NINF - 32 U/L [facility] Bilirubin [Mass/Vol] 0.4 mg/dL 0.3 - 1 .2 mg/dL [facility] Calcium [Mass/Vol] 8.9 mg/dL 8.6 - 10. 4 mg/dL [facility] Chloride [Moles/Vol] 103 mmol/L 98 - 10 7 mmol/L [facility] CO2 [Moles/Vol] 21 mmol/L 20 - 31 mmol/L [facility] Creatinine [Mass/Vol] 0.72 mg/dL 0.50 - 0.90 mg/dL [facility] GFR/1.73 sq M.predicted MDRD (S/P/Bld) [Vol rate/Area] - PINF [facility] Comment on above: These results are not intended for use in patients <18 years of age. eGFR results are calculated without a race factor using the 2020 CKD-EPI equation. Careful clinical correlation is recommended, particularly when comparing to results calculated using previous equations. The CKD-EPI equation is less accurate in patients with extremes of muscle mass, extra-renal metabolism of creatine, excessive creatine ingestion, or following therapy that affects renal tubular secretion. Glucose [Mass/Vol] 101 mg/dL High 70 - 99 mg/dL [facility] Interpretation and review of laboratory results Abnormal [facility] Potassium [Moles/Vol] 4.3 mmol/L 3.7 - 5.3 mmol/L [facility] Protein [Mass/Vol] 7.0 g/dL 6.4 - 8.3 g/dL [facility] Sodium [Moles/Vol] 135 mmol/L 135 - 144 mmol/L [facility] Urea nitrogen [Mass/Vol] 10 mg/dL 6 - 20 mg/dL [facility] Urea nitrogen/Creatinine (Bld) [Mass ratio] 14 9 - 20 [facility] No Panel Informationon 12-29 [facility] Sedimentation Rateon 12-29- 023 ESR (Bld) [Velocity] 1 mm/h [facility] T4, Freeon 12-29-2022 Free T4 [Mass/Vol] 1.10 ng/dL 0.93 - 1. 70 ng/dL [facility] TSHon 12-29-2022 TSH Qn 2.13 m[IU]/L [facility] Echocardiogram completeon [facility] Transthoracic Echocardiography Report (TTE) Patient Name RISHI Date of Study 12/17/2022 SHON Date of 2000 Gender Female Age 22 year(s) Race Room Number Height: 65 inch, 165.1 cm Corporate ID [id number] Weight: 250 pounds, 113.4 kg # Patient Acct [id number] BSA: 2.17 m^2 BMI: 41.6 kg/m^2 # MR # [id number] Facilities Maintenance Worker Jessie Torre, RT Interpreting Physician Skylar Munoz Fellow Referring Nurse Practitioner Interpreting Referring Physician Ellen Valero Type of Study TTE procedure:2D Echocardiogram, M-Mode, Doppler, Color Doppler. Procedure Date Date: 12/17/2022 Start: 08:28 AM Study Location: [facility] Indications:Bradycar padmini. Comments:Bigeminy, frequent PVC's Patient Status: Routine Height: 65 inches Weight: 250.01 pounds BSA: 2.17 m^2 BMI: 41.6 kg/m^2 CONCLUSIONS Summary 1. Normal echocardiogram with no structural abnormalities noted. 2. Normal LV, EF 60% 3. Normal PAP at 24 mmHg 4. Normal valves Signature Electronically signed by RT Jannet(Shelby)(M)(CT)([facility])(S onographer) on 12/17/2022 10:26 AM FINDINGS Left Atrium Left atrium is normal in size. Left Ventricle Left ventricle is normal in size. Global left ventricular systolic function is normal with an estimated ejection fraction of 60 % . Right Atrium Right atrium is normal in size. Right Ventricle Normal right ventricular size and function. Mitral Valve Normal mitral valve structure. No mitral regurgitation. Aortic Valve Aortic valve structure and function normal. Tricuspid Valve Normal tricuspid valve leaflets. Trivial tricuspid regurgitation. Estimated right ventricular systolic pressure is 24 mmHg. Pulmonic Valve The pulmonic valve is normal in structure. Pericardial Effusion No significant pericardial effusion is seen. Pleural Effusion No pleural effusion seen. Miscellaneous Normal aortic root dimension. M-mode / 2D Measurements & Calculations: LVIDs:3.16 cm(2.2 - 4.0 cm) Diastolic Volume:103.39 ml IVSd:1.04 cm(0.6 - 1.1 cm) Aortic Root:3.03 cm(2.0 - 3.7 cm) LA Dimension: 4.06 cm(1.9 - 4.0 cm) LVOT:2.08 cm RVDd:2.71 cm Mitral: Aortic Valve Area (P1/2-Time): 2.74 cm^2 Peak Velocity: 1.25 m/s Peak E-Wave: 0.84 m/s Peak Gradient: 6.25 mmHg Peak A-Wave: 0.62 m/s E/A Ratio: 1.36 Peak Gradient: 2.85 mmHg Deceleration Time: 276.65 msec P1/2t: 80.23 msec Tricuspid: Pulmonic: Estimated RVSP: 24.39 mmHg Peak Velocity: 1.00 m/s Peak TR Velocity: 2.20 m/s Peak Gradient: 4 mmHg Peak TR Gradient: 19.25023 mmHg Estimated RA Pressure: 5 mmHg Estimated PASP: 24.39 mmHg Diastology / Tissue Doppler Septal Wall E' velocity:0.12 m/s Lateral Wall E' velocity:0.18 m/s Lateral Wall E/E':4.55 [facility] Fer Cheng MD - 12/17/2022 [facility] Transthoracic Echocardiography Report (TTE) Patient Name RISHI Date of Study 12/17/2022 SHON Date of 2000 Gender Female Age 22 year(s) Race Room Number Height: 65 inch, 165.1 cm Corporate ID [id number] Weight: 250 pounds, 113.4 kg # Patient Acct [id number] BSA: 2.17 m^2 BMI: 41.6 kg/m^2 # MR # [id number] Facilities Maintenance Worker Jessie Torre, RT Interpreting Physician Skylar Munoz Fellow Referring Nurse Practitioner Interpreting Referring Physician Ellen Valero Type of Study TTE procedure:2D Echocardiogram, M-Mode, Doppler, Color Doppler. Procedure Date Date: 12/17/2022 Start: 08:28 AM Study Location: [facility] Indications:Bradycar padmini. Comments:Bigeminy, frequent PVC's Patient Status: Routine Height: 65 inches Weight: 250.01 pounds BSA: 2.17 m^2 BMI: 41.6 kg/m^2 CONCLUSIONS Summary 1. Normal echocardiogram with no structural abnormalities noted. 2. Normal LV, EF 60% 3. Normal PAP at 24 mmHg 4. Normal valves Signature - - - - FINDINGS Left Atrium Left atrium is normal in size. Left Ventricle Left ventricle is normal in size. Global left ventricular systolic function is normal with an estimated ejection fraction of 60 % . Right Atrium Right atrium is normal in size. Right Ventricle Normal right ventricular size and function. Mitral Valve Normal mitral valve structure. No mitral regurgitation. Aortic Valve Aortic valve structure and function normal. Tricuspid Valve Normal tricuspid valve leaflets. Trivial tricuspid regurgitation. Estimated right ventricular systolic pressure is 24 mmHg. Pulmonic Valve The pulmonic valve is normal in structure. Pericardial Effusion No significant pericardial effusion is seen. Pleural Effusion No pleural effusion seen. Miscellaneous Normal aortic root dimension. M-mode / 2D Measurements & Calculations: LVIDs:3.16 cm(2.2 - 4.0 cm) Diastolic Volume:103.39 ml IVSd:1.04 cm(0.6 - 1.1 cm) Aortic Root:3.03 cm(2.0 - 3.7 cm) LA Dimension: 4.06 cm(1.9 - 4.0 cm) LVOT:2.08 cm RVDd:2.71 cm Mitral: Aortic Valve Area (P1/2-Time): 2.74 cm^2 Peak Velocity: 1.25 m/s Peak E-Wave: 0.84 m/s Peak Gradient: 6.25 mmHg Peak A-Wave: 0.62 m/s E/A Ratio: 1.36 Peak Gradient: 2.85 mmHg Deceleration Time: 276.65 msec P1/2t: 80.23 msec Tricuspid: Pulmonic: Estimated RVSP: 24.39 mmHg Peak Velocity: 1.00 m/s Peak TR Velocity: 2.20 m/s Peak Gradient: 4 mmHg Peak TR Gradient: 19.08278 mmHg Estimated RA Pressure: 5 mmHg Estimated PASP: 24.39 mmHg Diastology / Tissue Doppler Septal Wall E' velocity:0.12 m/s Lateral Wall E' velocity:0.18 m/s Lateral Wall E/E':4.55 [email or web address] Work Phone: Echocardiogram completeOrder ed By: Fer Cheng on 12-17-2022 [email or web address] Work Phone: Basic Metabolic Panelon 11-05 Anion gap [Moles/Vol] 13 mmol/L 9 - 17 mmol/L [email or web address] Calcium [Mass/Vol] 9.3 mg/dL 8.6 - 10. 4 mg/dL [email or web address] Chloride [Moles/Vol] 103 mmol/L 98 - 10 7 mmol/L [email or web address] CO2 [Moles/Vol] 21 mmol/L 20 - 31 mmol/L [email or web address] Creatinine [Mass/Vol] 0.72 mg/dL 0.50 - 0.90 mg/dL [email or web address] GFR/1.73 sq M.predicted MDRD (S/P/Bld) [Vol rate/Area] - PINF [facility] Comment on above: These results are not intended for use in patients <18 years of age. eGFR results are calculated without a race factor using the 2020 CKD-EPI equation. Careful clinical correlation is recommended, particularly when comparing to results calculated using previous equations. The CKD-EPI equation is less accurate in patients with extremes of muscle mass, extra-renal metabolism of creatine, excessive creatine ingestion, or following therapy that affects renal tubular secretion. Glucose [Mass/Vol] 102 mg/dL High 70 - 99 mg/dL [facility] Interpretation and review of laboratory results Abnormal [facility] Potassium [Moles/Vol] 4.2 mmol/L 3.7 - 5.3 mmol/L [facility] Sodium [Moles/Vol] 137 mmol/L 135 - 144 mmol/L [facility] Urea nitrogen [Mass/Vol] 10 mg/dL 6 - 20 mg/dL [facility] Urea nitrogen/Creatinine (Bld) [Mass ratio] 14 9 - 20 [facility] T4, Freeon 11-19-2022 Free T4 [Mass/Vol] 0.85 ng/dL Low 0.93 - 1. 70 ng/dL [facility] Interpretation and review of laboratory results Abnormal [facility] TSHon 11-19-2022 TSH Qn 1.54 m[IU]/L [facility] Follicle Stimulating Hormone on 07-03-2022 FSH 6.9 [facility] Comment on above: Reference Range: Male: 1.5-12.4 Ovulating Female: Follicular Phase 3.5-12.5 Ovulation Phase 4.7-21.5 Luteal Phase 1.7-7.7 Postmenopausal Female: 25.8-134.8 Glucose, Fastingon Glucose [Mass/Vol] 110 mg/dL High 70 - 99 mg/dL [facility] Interpretation and review of laboratory results Abnormal [facility] Insulin, Totalon 07-03-2022 Insulin 22.7 mU/L [facility] Insulin Comment FASTING [facility] [employer] Insulin Reference Range: [facility] Comment on above: Fastin.6-24.9 30 min: 20-112 60 min: 29-88 90 min: 26-84 120 min: 22-79 Luteinizing Hormoneon 2021 LH 8.6 [facility] [employer] Comment on above: Reference Range: Male: 1.7-8.6 Ovulating Female: Follicular Phase 2.4-12.6 Ovulation Phase 14.0-95.6 Luteal Phase 1.0-11.4 Postmenopausal Female: 7.7-58.5 No Panel Informationon 07-03 [facility] [employer] Prolactinon 07-03-2022 Prolactin 16.84 ng/mL 4.79 - 23.3 ng/mL [facility] Comment on above: The presence of macr oprolactin may cause interference in female patients with various endocrinological diseases or during . [facility] [employer] Lipid PanelOrdered By: Joceline Valero on 04-03-2021 Cholesterol [Mass/Vol] 187 mg/dL <200 [facility]: Comment on above: Cholesterol Guidelines: <200 Desirable 200-240 Borderline >240 Undesirable Cholesterol in HDL [Mass/Vol] 37 mg/dL Low >40 [employer] Phone: Comment on above: HDL Guidelines: <40 Undesirable 40-59 Borderline >59 Desirable Cholesterol in LDL [Mass/Vol] 116 mg/dL 0 - 130 mg/dL [employer] Phone: Comment on above: LDL Guidelines: <100 Desirable 100-129 Near to/above Desirable 130-159 Borderline >159 Undesirable Direct (measured) LDL and calculated LDL are not interchangeable tests. Cholesterol in VLDL [Mass/Vol] NOT REPORTED High 1 - 30 mg/dL [employer] Phone: Cholesterol.total/Polly sterol in HDL [Mass ratio] 5.1 {ratio} High <5 [employer] Phone: Interpretation and review of laboratory results Abnormal [employer] Phone: Triglyceride [Mass/Vol] 169 mg/dL High <150 [employer] Work Phone: Comment on above: Triglyceride Guidelines: <150 Desirable 150-199 Borderline 200-499 High >499 Very high Based on AHA Guidelines for fasting triglyceride, July 2012. [employer] Phone: CBC Auto DifferentialOrdered By: Ellen Valero on 04-02-2021 Absolute Eos # 0.10 [employer] [facility] Work Phone: Absolute Immature Granulocyte NOT REPORTED [employer] Work Phone: Absolute Lymph # 3.20 [employer] Work Phone: Absolute [place] # 0.70 [employer] Work Phone: Basophils (Bld) [#/Vol] 0.00 10*3/uL [employer] Work Phone: Basophils/100 WBC (Bld) 0 % 0 - 2 % [employer] Work Phone: Differential Type YES [employer] [facility] Work Phone: Eosinophils/100 WBC (Bld) 1 % 0 - 5 % [employer] Phone: Hematocrit (Bld) [Volume fraction] 37.9 % 36 - 46 % [employer] Phone: Hemoglobin.gastrointest inal spec 1 Ql (Stl) 13.4 g/dL 12.0 - 16.0 g/dL [employer] Phone: Immature Granulocytes NOT REPORTED 0 % [employer] Work Phone: Lymphocytes/100 WBC (Bld) 36 % 15 - 40 % [employer] Work Phone: MCH (RBC) [Entitic mass] 31.3 pg 26 - 34 pg [employer] Work Phone: MCHC (RBC) [Mass/Vol] 35.5 g/dL 31 - 37 g/dL [employer] Work Phone: MCV (RBC) [Entitic vol] 88.1 fL 80 - 100 fL [employer] Phone: Monocytes/100 WBC (Bld) 8 % 4 - 8 % [employer] Work Phone: NRBC Automated NOT REPORTED per 100 WBC [employer] Work Phone: Platelet distribution width (Bld) [Ratio] 12.5 % 12.1 - 15.2 % [employer] Work Phone: Platelet Estimate NOT REPORTED [employer] Phone: Platelet mean volume (Bld) [Entitic vol] NOT REPORTED 6.0 - 12.0 fL [employer] Phone: Platelets (Bld) [#/Vol] 262 10*3/uL [employer] Phone: RBC (Bld) [#/Vol] 4.30 10*6/uL 4.0 - 5.2 m/uL [employer] Phone: RBC (Bld) [#/Vol] NOT REPORTED [employer] Phone: Segmented neutrophils/100 WBC (Bld) 55 % 47 - 75 % [employer] Phone: Segs Absolute 4.[address] [employer] [facility] [employer] Work Phone: WBC (Bld) [#/Vol] 9.0 10*3/uL [employer] Work Phone: WBC (Bld) [#/Vol] NOT REPORTED [employer] Phone: [employer] Work Phone: Comprehensive Metabolic Pane lOrdered By: Ellen Valero on 04-02-2021 Albumin [Mass/Vol] 4.2 g/dL 3.5 - 5.2 g/dL [employer] Phone: Albumin/Globulin Ratio NOT REPORTED [employer] Phone: ALP (Bld) [Catalytic activity/Vol] 45 U/L 35 - 104 U/L [employer] Phone: ALT [Catalytic activity/Vol] 20 U/L 5 - 33 U/L [employer] Phone: Anion gap [Moles/Vol] 9 mmol/L 9 - 17 mmol/L [employer] Phone: AST [Catalytic activity/Vol] 17 U/L <32 [employer] Phone: Bilirubin [Mass/Vol] 0.20 mg/dL Low 0.30 - 1.20 mg/dL [employer] Phone: Calcium [Mass/Vol] 8.9 mg/dL 8.6 - 10. 4 mg/dL [employer] Phone: Chloride [Moles/Vol] 106 mmol/L 98 - 10 7 mmol/L [employer] Phone: CO2 [Moles/Vol] 22 mmol/L 20 - 31 mmol/L [employer] Phone: Creatinine [Mass/Vol] 0.84 mg/dL 0.50 - 0.90 mg/dL [employer] Phone: Free PSA/Total PSA [Mass fraction] 6.5 g/dL 6.4 - 8.3 g/dL [employer] Phone: GFR >60 >60 mL/min [employer] Phone: GFR Non- >60 >60 mL/min [employer] Phone: GFR/1.73 sq M.predicted MDRD (S/P/Bld) [Vol rate/Area] [employer] Phone: Comment on above: Average GFR for 20-2 9 years old: 116 mL/min/1.73sq m Chronic Kidney Disease: <60 mL/min/1.73sq m Kidney failure: <15 mL/min/1.73sq m eGFR calculated using average adult body mass. Additional eGFR calculator available at: http://www.[employer]/multiple_crcl_2012.htm GFR/1.73 sq M.predicted MDRD (S/P/Bld) [Vol rate/Area] NOT REPORTED [employer] Phone: Glucose [Mass/Vol] 97 mg/dL 70 - 99 mg/dL [employer] Phone: Interpretation and review of laboratory results Abnormal [employer] Phone: Potassium [Moles/Vol] 4.1 mmol/L 3.7 - 5.3 mmol/L [employer] Phone: Sodium [Moles/Vol] 137 mmol/L 135 - 144 mmol/L [employer] Phone: Urea nitrogen (BldV) [Mass/Vol] 11 mg/dL 6 - 20 mg/dL [employer] Phone: Urea nitrogen/Creatinine (Bld) [Mass ratio] 13 [employer] Phone: No Panel InformationOrdered By: Ellen Valero on 04-02-2021 [employer] Phone: Patient Fasting?Ordered By: Ellen Valero on 04-02-2021 Patient Fasting? NO [employer] Work Phone: [employer] Phone: TSH with ReflexOrdered By: Jayce Valero on 04-02-2021 TSH Qn 1.86 m[IU]/L [employer] Phone: Vital Signs Date Time Vital Sign Value Performing Clinician Facility 07-29-2024 10:07-0400 Body mass index (BMI) [Ratio] 36.02 kg/m2 [facility] Nurse [facility] 07-29-2024 10:07-0400 Body weight 104.33 kg [facility] Nurse [facility] 07-29-2024 10:07-0400 Diastolic blood pressure 74 mm[Hg] [facility] 07-29-2024 10:07-0400 Systolic blood pressure 118 mm[Hg] [facility] 03-12-2023 11:26-0400 Blood Pressure Location [employer] [facility] 03-12-2023 11:26-0400 Body temperature 99.14 [degF] [facility] 03-12-2023 11:26-0400 Diastolic blood pressure 84 mm[Hg] [employer] [facility] 03-12-2023 11:26-0400 Heart rate 66 /min [employer] [facility] 03-12-2023 11:26-0400 SaO2% (BldA) [Mass fraction] 98 % [employer] [facility] 03-12-2023 11:26-0400 Systolic blood pressure 128 mm[Hg] [facility] Encounters Encounter Date Encounter Type Care Provider Facility Start: 07-29-2024 End: 07-29-2024 ambulatory [facility] Comment on above: GA: 7w5d Start: 07-21-2024 End: 07-21-2024 ambulatory [facility] Start: 07-21-2024 End: 07-21-2024 Subsequent hospital visit by physician Ellen Valero DO Work Phone: [facility] Comment on above: Spotting affecting p regnancy in first trimester; Empty gestational sac with ongoing Start: 07-21-2024 End: 07-23-2024 [facility] Start: 07-21-2024 End: 07-23-2024 Subsequent hospital visit by physician Ellen Valero DO Work Phone: [facility] Comment on above: Spotting affecting p regnancy in first trimester; Empty gestational sac with ongoing Start: 07-15-2024 End: 07-17-2024 ambulatory [facility] Start: 07-15-2024 End: 07-17-2024 Subsequent hospital visit by physician [facility] Ul[facility]ound Room 2 [facility] Ul[facility]ound Comment on above: Spotting affecting p regnancy in first trimester Start: 07-14-2024 End: 07-14-2024 ambulatory [facility] Start: 07-14-2024 End: 07-14-2024 Subsequent hospital visit by physician Ellen Valero DO Work Phone: [facility] Comment on above: Spotting affecting p regnancy in first trimester Start: 07-12-2024 End: 07-12-2024 [facility] Start: 07-12-2024 End: 07-12-2024 Subsequent hospital visit by physician Ellen Valero DO Work Phone: [facility] Comment on above: Missed period Start: 07-01-2024 End: 07-01-2024 [facility] Start: 12-16-2023 End: 12-17-2023 ambulatory [facility] Facility:[facility] Start: 11-03-2023 End: 11-03-2023 ambulatory [facility] Start: 07-09-2023 End: 07-10-2023 ambulatory Wale Guerrero [facility] Start: 07-09-2023 End: 07-10-2023 ambulatory Wale Guerrero Facility:[facility] Start: 03-12-2023 End: 03-13-2023 ambulatory Rae Mendez [facility] Start: 03-12-2023 End: 03-13-2023 ambulatory Rae Mendez Facility: [facility] Start: 03-12-2023 End: 03-12-2023 Patient encounter procedure Rae Mendez [facility] Start: 12-29-2022 End: 12-29-2022 Subsequent hospital visit by physician Ellen Valero DO Work Phone: [facility] Comment on above: Loud snoring; Sleep apnea, unspecified type; Palpitations; Acquired hypothyroidism Start: 12-18-2022 End: 12-18-2022 Subsequent hospital visit by physician [facility] Stress Rm [facility] Comment on above: Bigeminy; Frequent PVCs; Bradycardia Start: 12-17-2022 End: 12-17-2022 Subsequent hospital visit by physician [facility] Echo Room Hortensia Simental [facility] Comment on above: Bigeminy; Frequent PVCs; Bradycardia Start: 11-28-2022 End: 11-28-2022 Subsequent hospital visit by physician [facility] Ekg [facility] Comment on above: Bradycardia; Intermittent lightheadedness Start: 11-19-2022 End: 11-19-2022 Subsequent hospital visit by physician Ellen Valero DO Work Phone: [facility] Comment on above: Bradycardia; Intermittent lightheadedness Start: 07-03-2022 End: 07-03-2022 Subsequent hospital visit by physician Ellen Valero DO Work Phone: [facility] Comment on above: Irregular menses Start: 04-02-2021 End: 04-02-2021 Subsequent hospital visit by physician Ellen Valero DO Work Phone: [facility] Comment on above: Screening for cardio vascular condition; Family history of diabetes mellitus; Irregular menses; Chronic fatigue Procedures Date Procedure Procedure Detail Performing Clinician Start: 07-29-2024 Urnls dip stick/tabl et rgnt non-auto w/o micrscp Farhat Kamari DO Work Phone: Start: 07-21-2024 Gonadotropin chorion ic quantitative Ellen Valero DO Work Phone: Start: 07-21-2024 Us preg uterus real time w/image dcmtn transvag Ellen Valero DO Work Phone: Start: 07-14-2024 Gonadotropin chorion ic quantitative Ellen Valero DO Work Phone: Start: 07-12-2024 Gonadotropin chorion ic quantitative Ellen Valero DO Work Phone: Start: 12-29-2022 C-reactive protein Fer Cheng MD Work Phone: Start: 12-29-2022 End: 12-29-2022 Comprehensive metabolic panel Fer Cheng MD Work Phone: Start: 12-17-2022 Echo tthrc r-t 2d w/wom-mode compl spec&colr d Ellen Valero DO Work Phone: Start: 11-19-2022 Basic metabolic pane l calcium total Ellen Valero DO Work Phone: Start: 07-03-2022 Gonadotropin follicl e stimulating hormone Ellen Valero DO Work Phone: Start: 04-02-2021 Comprehensive metabo lic panel Ellen Valero DO Work Phone: Start: 04-02-2021 Lipid panel Ellen Valero DO Work Phone: Start: 04-02-2021 PATIENT FASTING? Brandon Valero DO Work Phone: Plan of Treatment Date Care Activity Detail Author Start: 07-08-2025 Depression Screen Depression Screen [facility] Start: 08-22-2024 End: 08-22-2024 Patient encounter procedure 08/22/2024 3:10 PM EST Routine [facility] [address] [place] [address] Farhat Benites DO [address] [place] [address] [facility] Start: 07-29-2024 End: 07-29-2025 ABO/Rh ABO/Rh Lab Routine Missed menses , unspecified gestational age Expected: 07/29/2024 (Approximate), Expires: 07/29/2025 [facility] Comment on above: Expected: 07/29/2024 (Approximate), Expires: 07/29/2025 Start: 07-29-2024 End: 07-29-2025 Blood type and Indirect antibody screen panel - Blood Type and screen Lab Routine Missed menses , unspecified gestational age Expected: 07/29/2024 (Approximate), Expires: 07/29/2025 [facility] Work Phone: Comment on above: Expected: 07/29/2024 (Approximate), Expires: 07/29/2025 Start: 07-29-2024 End: 07-29-2025 Drugs of abuse panel - Urine by Screen method Rapid drug screen, urine Lab Routine , unspecified gestational age Encounter for supervision of normal first in first trimester Expected: 07/29/2024 (Approximate), Expires: 07/29/2025 [facility] Comment on above: Expected: 07/29/2024 (Approximate), Expires: 07/29/2025 Start: 07-29-2024 End: 07-29-2025 US Pelvis transvaginal US OB transvaginal Imaging Routine Missed menses Expected: 07/29/2024 (Approximate), Expires: 07/29/2025 [facility] Comment on above: Expected: 07/29/2024 (Approximate), Expires: 07/29/2025 Start: 07-15-2024 End: 07-15-2024 Patient encounter procedure 07/15/2024 11:30 AM EDT Appointment [facility] [address] [place] [id number] Pinkish/brown discharge - ordered from doctor [facility] Comment on above: Pinkish/brown discha rge - ordered from doctor Start: 06-05-2024 COVID-19 Vaccine ( season) [facility]ine () [facility] Start: 05-05-2024 Influenza vaccination Flu vaccine (# 1) [facility] Start: 11-19-2023 Depression Screen Depression Screen [facility] Start: 07-06-2023 DTaP/Tdap/Td vaccine (7 - Td or Tdap) DTaP/Tdap/Td vaccine (7 - Td or Tdap) [facility] Start: 07-02-2023 Depression Screen Depression Screen [facility] Start: 03-30-2023 End: 03-30-2023 Patient encounter procedure 03/30/2023 Office Visit Cardiology Fer Cheng MD [address] [phone] [facility] Start: 03-11-2023 End: 03-11-2023 Patient encounter procedure 03/11/2023 Appointment EKG [facility] Start: 12-24-2022 End: 12-24-2022 Patient encounter procedure 12/24/2022 Office Visit Cardiology Fer Cheng MD [address] [phone] [facility] Start: 12-18-2022 Subsequent hospital visit by physician 12/18/2022 Hospital Encounter Stress Lab [facility] Start: 05-05-2022 Influenza vaccination Flu vaccine (# 1) [facility] Start: 2022 Screening for malignant neoplasm of cervix Pap smear [facility] Start: 06-05-2021 Influenza vaccination Flu vacc ine (Season Ended) [employer] Work Phone: Start: 2019 Hepatitis C screening Hepatitis C sc reen [facility] Start: 2017 Screening for Chlamydia trachomatis [facility] Start: 01-26-2016 HIV screening HIV screen [facility] Fever Start: 01-26-2016 HPV vaccine (1 - 3-dose series) HPV vaccine (1 - 3-dose series) [facility] Start: 2013 COVID-19 Vaccine (1) COVID-19 Vaccin e (1) [employer] Phone: Start: 01-26-2012 HPV vaccine (1 - 2-dose series) HPV vaccine (1 - 2-dose series) [email or web address] Start: 2005 Varicella vaccine (2 of 2 - 2-dose childhood series) Varicella vaccine (2 of 2 - 2-dose childhood series) [email or web address] Start: 2001 COVID-19 Vaccine (#1) COVID-19 Vacci ne (#1) [email or web address] Start: 2001 Hepatitis C screening Hepatitis C sc reen [employer] Phone: End: 12-29-2022 RAMON profile [employer] Phone: Comment on above: 1 Occurrences starti ng 12/29/2022 until 12/29/2022 Bacteria identified in Urine by Culture Urine culture Microbiology Routine Missed menses Ordered: 07/29/2024 [facility] [employer] Comment on above: Ordered: 07/29/2024 CBC W Auto Differential panel - Blood CBC and differential Lab Routine Missed menses , unspecified gestational age Ordered: 07/29/2024 [facility] [employer] Comment on above: Ordered: 07/29/2024 End: 12-18-2022 Exercise stress test study CARDIAC STRESS TEST EXERCISE ONLY [facility] Routine Bigeminy Frequent PVCs Bradycardia 1 Occurrences starting 12/18/2022 until 12/18/2022 [employer] Phone: Comment on above: 1 Occurrences starti ng 12/18/2022 until 12/18/2022 End: 04-02-2021 Hemoglobin A1c/Hemoglobin.total in Blood Hemoglobin A1C Lab Routine Family history of diabetes mellitus Irregular menses 1 Occurrences starting 04/02/2021 until 04/02/2021 [employer] Phone: Comment on above: 1 Occurrences starti ng 04/02/2021 until 04/02/2021 Hemoglobin A1c/Hemoglobin.total in Blood Hemoglobin A1C Lab Routine Family history of diabetes mellitus Irregular menses 04/02/2021 2:59 PM EDT [employer] Phone: Hemoglobin A1c/Hemoglobin.total in Blood Hemoglobin A1c Lab Routine Missed menses , unspecified gestational age Ordered: 07/29/2024 [facility] Comment on above: Ordered: 07/29/2024 Hepatitis B virus surface Ag [Presence] in Serum or Plasma by Immunoassay Hepatitis B surface antigen Lab Routine Missed menses , unspecified gestational age Ordered: 07/29/2024 [facility] Comment on above: Ordered: 07/29/2024 Hepatitis C virus Ab [Presence] in Serum or Plasma by Immunoassay Hepatitis C antibody Lab Routine Missed menses , unspecified gestational age Ordered: 07/29/2024 [facility] Comment on above: Ordered: 07/29/2024 HIV-1/HIV-2 antigen/antibody combination immunoassay HIV-1 and HIV-2 antibodies Lab Routine Missed menses , unspecified gestational age Ordered: 07/29/2024 [facility] Comment on above: Ordered: 07/29/2024 End: 11-28-2022 Holter Monitor 48 Hour Holter Monitor 48 Hour Cardiac Services Routine Bradycardia Intermittent lightheadedness 1 Occurrences starting 11/28/2022 until 11/28/2022 [email or web address] Work Phone: Comment on above: 1 Occurrences starti ng 11/28/2022 until 11/28/2022 Reagin Ab [Presence] in Serum by RPR RPR Lab Routine Missed menses , unspecified gestational age Ordered: 07/29/2024 [facility] Comment on above: Ordered: 07/29/2024 Rubella antibody, IgG Rubella an tibody, IgG Lab Routine Missed menses , unspecified gestational age Ordered: 07/29/2024 [facility] Comment on above: Ordered: 07/29/2024 End: 12-29-2022 Thyroid Antibodies [email or web address] Work Phone: Comment on above: 1 Occurrences starti ng 12/29/2022 until 12/29/2022 End: 07-15-2024 US Pelvis transvaginal [employer] Comment on above: 1 Occurrences starti ng 07/15/2024 until 07/15/2024 Immunizations Immunization Date Immunization Notes Care Provider Raudel sanches 11-06-2019 influenza virus vaccine, unspecified formulation [facility] 11-06-2019 Influenza, injectabl e, Madin Deirdre Canine Kidney, preservative free, quadrivalent Ellen Valero DO Work Phone: [employer] Work Phone: 06-01-2019 hepatitis B vaccine, adult dosage [facility] 06-01-2019 varicella virus vaccine Auro [facility] 06-23-2018 meningococcal ACWY vaccine, unspecified formulation Rae [facility] Comment on above: Result Comment: 2022: VIS DATE: 01/03/2016 06-23-2018 meningococcal polysaccharide (groups A, C, Y and W-135) diphtheria toxoid conjugate vaccine (MCV4P) Ellen Valero DO Work Phone: [employer] Work Phone: 05-09-2016 meningococcal ACWY vaccine, unspecified formulation [facility] 05-09-2016 meningococcal polysaccharide (groups A, C, Y and W-135) diphtheria toxoid conjugate vaccine (MCV4P) Ellen Valero DO Work Phone: [employer] Phone: 07-06-2013 tetanus toxoid, redu tomasz diphtheria toxoid, and acellular pertussis vaccine, adsorbed Ellen Valero DO Work Phone: [facility] Fever 04-22-2006 diphtheria, tetanus toxoids and acellular pertussis vaccine Ellen [facility] DO [facility] Phone: 04-22-2006 DTaP, unspecified formulation [facility] 04-22-2006 measles, mumps and rubella virus vaccine lElen Valero DO Work Phone: [employer] Work Phone: 04-22-2006 poliovirus vaccine, inactivated Ellen [facility] DO [facility] Work Phone: 04-22-2006 poliovirus vaccine, unspecified formulation [employer] [facility] 07-24-2004 diphtheria, tetanus toxoids and acellular pertussis vaccine Ellen Valero DO Work Phone: [employer] Work Phone: 07-24-2004 DTaP, unspecified formulation [facility] [employer] [facility] 07-24-2004 haemophilus influenz ae type b vaccine, conjugate unspecified formulation Ellen Valero DO Work Phone: [facility] 07-24-2004 Hib, unspecified formulation [employer] [facility] 07-06-2004 haemophilus influenz ae type b vaccine, PRP-OMP conjugate [facility] 07-06-2004 Hib, unspecified Ellen thapa DO Work Phone: [facility] [employer] Work Phone: 05-25-2002 diphtheria, tetanus toxoids and acellular pertussis vaccine Ellen Valero DO Work Phone: [facility] [employer] Work Phone: 05-25-2002 DTaP, unspecified formulation Rae OrzeSmarty Ring [facility] 05-25-2002 haemophilus influenz ae type b vaccine, conjugate unspecified formulation Ellennatalia Valero DO Work Phone: [facility] 05-25-2002 hepatitis B vaccine, adult dosage Ellen Valero DO Work Phone: [facility] [employer] Work Phone: 05-25-2002 hepatitis B vaccine, pediatric or pediatric/adolescent dosage [facility] 05-25-2002 hepatitis B vaccine, unspecified formulation Ellen Valero DO Work Phone: [employer] Work Phone: 05-25-2002 Hib, unspecified Ellen thapa DO Work Phone: [employer] Work Phone: 05-25-2002 Hib, unspecified formulation [facility] 05-25-2002 measles, mumps and rubella virus vaccine Ellen Valero DO Work Phone: [employer] Work Phone: 05-25-2002 poliovirus vaccine, inactivated Ellen Valero DO Work Phone: [employer] Work Phone: 05-25-2002 poliovirus vaccine, unspecified formulation [facility] 05-25-2002 varicella virus vaccine Jeana Valero DO Work Phone: [employer] Work Phone: 2001 diphtheria, tetanus toxoids and acellular pertussis vaccine Ellen Valero DO Work Phone: [employer] Work Phone: 2001 DTaP, unspecified formulation [facility] 2001 haemophilus influenz ae type b vaccine, PRP-OMP conjugate [facility] 2001 Hib, unspecified Ellen Yon elier DO Work Phone: [employer] Work Phone: 2001 pneumococcal conjuga te vaccine, 7 valent Ellen Yonley DO Work Phone: [employer] Work Phone: 2001 poliovirus vaccine, inactivated Ellen Yonley DO Work Phone: [employer] Work Phone: 2001 poliovirus vaccine, unspecified formulation [facility] 2001 diphtheria, tetanus toxoids and acellular pertussis vaccine Ellen Yonley DO Work Phone: [employer] Work Phone: 2001 DTaP, unspecified formulation [facility] 2001 haemophilus influenz ae type b vaccine, PRP-OMP conjugate [facility] 2001 hepatitis B vaccine, adult dosage Ellen Sunshinenley DO Work Phone: [facility] [employer] Work Phone: 2001 hepatitis B vaccine, pediatric or pediatric/adolescent dosage [facility] 2001 hepatitis B vaccine, unspecified formulation Ellen Yonley DO Work Phone: [employer] Phone: 2001 Hib, unspecified Ellen Yon elier DO Work Phone: [employer] Phone: 2001 pneumococcal conjuga te vaccine, 7 valent Ellen Yonley DO Work Phone: [employer] Work Phone: 2001 poliovirus vaccine, inactivated Ellen Yonley DO Work Phone: [employer] Work Phone: 2001 poliovirus vaccine, unspecified formulation [facility] 2001 hepatitis B vaccine, adult dosage Ellen Yonley DO Work Phone: [facility] [employer] Work Phone: 2001 hepatitis B vaccine, pediatric or pediatric/adolescent dosage [facility] 2001 hepatitis B vaccine, unspecified formulation Ellen Yonley DO Work Phone: [employer] Work Phone: NEGATED: Highlighted row has not occurred!03-12-2023 SARS-CoV-2 mRNA (tozinameran 5y-11y) vaccine [facility] Payers Date Payer Category Payer [facility] [id number] 2018 Unknown [id number] 2001 Unknown [id number] [id number] 2001 Unknown [id number] [id number] 2001 Unknown [id number] [id number] 2001 Unknown [id number] [id number] 2001 Unknown [id number] [id number] 2001 Unknown [id number] [id number] 2001 Unknown [id number] [id number] 2001 Unknown [id number] [id number] 2001 Unknown [id number] [id number] 2001 Unknown [id number] [id number] 2001 Unknown [id number] [id number] 2001 Unknown [id number] Social History Date Type Detail Facility Start: 04-02-2021 End: 04-17-2023 Tobacco smoking status [facility] Never smoker [employer] Phone: Start: 04-02-2021 End: 07-02-2022 Tobacco use and exposure Never used [employer] Start: 04-02-2021 End: 11-19-2022 Alcohol intake Not Asked [employer] Phone: Start: 04-02-2021 End: 07-29-2024 Alcohol intake [facility] Work Phone: Start: 02-20-2021 End: 11-19-2022 History SDOH Financial 5 [facility] Work Phone: Start: 02-20-2021 End: 11-19-2022 History SDOH Food Worry 1 [facility] Work Phone: Start: 2001 Sex Assigned At Not on [facility] Work Phone: Start: 11-19-2022 History SDOH Transpo rt Non-Med 2 [employer] Work Phone: Tobacco smoking status Never [facility] Start: 07-08-2024 End: 07-29-2024 Sex Assigned At Female [facility] Start: 07-08-2024 Alcoholic beverage intake Current drinker of alcohol (finding) [employer] How hard is it for y ou to pay for the very basics like food, housing, medical care, and heating Not very hard [employer] (I/We) worried michelle er (my/our) food would run out before (I/we) got money to buy more. Never true [employer] At any time in the past 12 months, were you homeless or living in senior living [including now]? No [employer] Start: 11-03-2023 Alcohol Comment recreational drinkin g [employer] Start: 07-29-2024 Alcoholic beverage intake Lifetime non-drinker (finding) [facility] Start: 04-17-2023 Alcohol Comment Caffeine intak e: 1-2 cups per day [facility] Start: 06-19-2024 [facility] Start: 2001 Sex assigned at Female [facility] Start: 07-24-2024 Gender identity Identifies as female gender (finding) [facility] Functional Status Date Assessment Result Facility 03-12-2023 Functional Status N/A [facility] Clinical Notes 11-28-2022 to 07-29-2024 Valerie Randolph, LIBRADO - 07/29/2024 9:30 AM Robyn Fallon, PROJECT MANAGER PROCESS DEVELOPMENT - 11/28/2022 12:30 PM EST Note Date & Type Note Facility 07-29-2024 History of Presen t illness Narrative Reason for Appointment: Patient ID: Shon Blackwell is a 24 y.o. female who presents for Amenorrhea Patient presents today for a Nurse OB Intake appointment. Patient is 7w5d with a Estimated Date of Delivery: 03/12/25 OB History Para Term AB Living 1 0 0 0 0 0 SAB IAB Ectopic Multiple Live Births 0 0 0 0 0 # Outcome Date GA Lbr Herman/2nd Weight Sex Type Anes PTL Lv 1 Current Current Medications: has a current medication list which includes the following prescription(s): levothyroxine. Medical History: Active Ambulatory Problems Diagnosis Date Noted No Active Ambulatory Problems Resolved Ambulatory Problems Diagnosis Date Noted No Resolved Ambulatory Problems Past Medical History: Diagnosis Date Hypothyroidism (CMS/HCC) Family History Problem Relation Name Age of Onset Rheum arthritis Father Hypertension Father Social History Tobacco Use Smoking status: Never Smokeless tobacco: Not on file Substance Use Topics Alcohol use: Never Comment: Caffeine intake: 1-2 cups per day Drug use: Never Past Surgical History: Procedure Laterality Date WISDOM TOOTH EXTRACTION 2018 No Known Allergies Vitals: Estimated body mass index is 36.02 kg/m as calculated from the following: Height as of 02/23/19: 5' 7 . Weight as of this encounter: 230 lb. BP: 118/74 Patient's last menstrual period was 06/05/2024. Assessment/Plan Diagnoses and all orders for this visit: Missed menses - Type and screen; Future - ABO/Rh; Future - CBC and differential - Hemoglobin A1c - RPR - Rubella antibody, IgG - Hepatitis B surface antigen - Hepatitis C antibody - HIV-1 and HIV-2 antibodies - Urine culture - US OB transvaginal; Future - POCT , urine manually resulted - POCT urinalysis dipstick manually resulted 7 weeks gestation of , unspecified gestational age - Type and screen; Future - ABO/Rh; Future - CBC and differential - Hemoglobin A1c - RPR - Rubella antibody, IgG - Hepatitis B surface antigen - Hepatitis C antibody - HIV-1 and HIV-2 antibodies - Rapid drug screen, urine; Future Encounter for supervision of normal first in first trimester - Rapid drug screen, urine; Future Nurse Note: Pt will think about the Greer 21 lab order. Pt was advised if she chooses to have it done to please have both and Greer done together. Pt verbally understood. Follow Up: Patient is to have labs drawn at directed and return to office for initial OB appointment with provider. Patient may call office as needed with any concerns or questions. OB Intake: Patient presents today for first OB visit. Patients history has been reviewed in great detail including any potential risks. Patient signed consent forms and patient desires testing in both trimesters. Patient currently has no complaints and has been advised to drink 6-8 glasses of water a day, eat no raw or undercooked meat, and stay away from [facility]. Patient has also been advised to not change litter boxes and eat 6 small meals a day. Patient has been consulted regarding the do's and don'ts of . Patient was given labs and all questions and concerns were answered. Follow Up: Patient is to return in 4 weeks for routine OB appointment. Nurse Visit Completed by: Valerie Randolph MA documented in this encounter [facility] 03-12-2023 Hospital Discharg e instructions Patient Education 03/12/2023 11:56:42 Pharyngitis Pharyngitis Pharyngitis is inflammation of the throat (pharynx). It is a very common cause of sore throat. Pharyngitis can be caused by a bacteria, but it is usually caused by a virus. Most cases of pharyngitis get better on their own without treatment. What are the causes? This condition may be caused by: Infection by viruses (viral). Viral pharyngitis spreads easily from person to person (is contagious) through coughing, sneezing, and sharing of personal items or utensils such as cups, forks, spoons, and toothbrushes. Infection by bacteria (bacterial). Bacterial pharyngitis may be spread by touching the nose or face after coming in contact with the bacteria, or through close contact, such as kissing. Allergies. Allergies can cause buildup of mucus in the throat (post-nasal drip), leading to inflammation and irritation. Allergies can also cause blocked nasal passages, forcing breathing through the mouth, which dries and irritates the throat. What increases the risk? You are more likely to develop this condition if: You are 5 24 years old. You are exposed to crowded environments such as daycare, school, or dormitory living. You live in a cold climate. You have a weakened disease-fighting (immune) system. What are the signs or symptoms? Symptoms of this condition vary by the cause. Common symptoms of this condition include: Sore throat. Fatigue. Low-grade fever. Stuffy nose (nasal congestion) and cough. Headache. Other symptoms may include: Glands in the neck (lymph nodes) that are swollen. Skin rashes. Plaque-like film on the throat or tonsils. This is often a symptom of bacterial pharyngitis. Vomiting. Red, itchy eyes (conjunctivitis). Loss of appetite. Joint pain and muscle aches. Enlarged tonsils. How is this diagnosed? This condition may be diagnosed based on your medical history and a physical exam. Your health care provider will ask you questions about your illness and your symptoms. A swab of your throat may be done to check for bacteria (rapid strep test). Other lab tests may also be done, depending on the suspected cause, but these are rare. How is this treated? Many times, treatment is not needed for this condition. Pharyngitis usually gets better in 3 4 days without treatment. Bacterial pharyngitis may be treated with antibiotic medicines. Follow these instructions at home: Medicines Take brrm-aac-osspwgc and prescription medicines only as told by your health care provider. If you were prescribed an antibiotic medicine, take it as told by your health care provider. Do not stop taking the antibiotic even if you start to feel better. Use throat sprays to soothe your throat as told by your health care provider. Children can get pharyngitis. Do not give your child aspirin because of the association with Bean's syndrome. Managing pain To help with pain, try: Sipping warm liquids, such as broth, herbal tea, or warm water. Eating or drinking cold or frozen liquids, such as frozen ice pops. Gargling with a mixture of salt and water 3 4 times a day or as needed. To make salt water, completely dissolve 1 tsp (3 6 g) of salt in 1 cup (237 mL) of warm water. Sucking on hard candy or throat lozenges. Putting a cool-mist humidifier in your bedroom at night to moisten the air. Sitting in the bathroom with the door closed for 5 10 minutes while you run hot water in the shower. General instructions Do not use any products that contain nicotine or tobacco. These products include cigarettes, chewing tobacco, and vaping devices, such as e-cigarettes. If you need help quitting, ask your health care provider. Rest as told by your health care provider. Drink enough fluid to keep your urine pale yellow. How is this prevented? To help prevent becoming infected or spreading infection: Wash your hands often with soap and water for at least 20 seconds. If soap and water are not available, use hand fertilizer loader. Do not touch your eyes, nose, or mouth with unwashed hands, and wash hands after touching these areas. Do not share cups or eating utensils. Avoid close contact with people who are sick. Contact a health care provider if: You have large, tender lumps in your neck. You have a rash. You cough up green, yellow-brown, or bloody mucus. Get help right away if: Your neck becomes stiff. You drool or are unable to swallow liquids. You cannot drink or take medicines without vomiting. You have severe pain that does not go away, even after you take medicine. You have trouble breathing, and it is not caused by a stuffy nose. You have new pain and swelling in your joints such as the knees, ankles, wrists, or elbows. These symptoms may represent a serious problem that is an emergency. Do not wait to see if the symptoms will go away. Get medical help right away. Call your local emergency services (911 in the [place] Do not drive yourself to the hospital. Summary Pharyngitis is redness, pain, and swelling (inflammation) of the throat (pharynx). While pharyngitis can be caused by a bacteria, the most common causes are viral. Most cases of pharyngitis get better on their own without treatment. Bacterial pharyngitis is treated with antibiotic medicines. This information is not intended to replace advice given to you by your health care provider. Make sure you discuss any questions you have with your health care provider. Document Revised: 12/18/2021 Document Reviewed: 12/18/2021 [employer] Patient Education 2022 [employer]. 03/12/2023 11:56:32 BMI for Adults BMI for Adults What is BMI? Body mass index (BMI) is a number that is calculated from a person's weight and height. BMI can help estimate how much of a person's weight is composed of fat. BMI does not measure body fat directly. Rather, it is an alternative to procedures that directly measure body fat, which can be difficult and expensive. BMI can help identify people who may be at higher risk for certain medical problems. What are BMI measurements used for? BMI is used as a screening tool to identify possible weight problems. It helps determine whether a person is obese, overweight, a healthy weight, or underweight. BMI is useful for: Identifying a weight problem that may be related to a medical condition or may increase the risk for medical problems. Promoting changes, such as changes in diet and exercise, to help reach a healthy weight. BMI screening can be repeated to see if these changes are working. How is BMI calculated? BMI involves measuring your weight in relation to your height. Both height and weight are measured, and the BMI is calculated from those numbers. This can be done either in [place] ([place] or metric measurements. Note that charts and online BMI calculators are available to help you find your BMI quickly and easily without having to do these calculations yourself. To calculate your BMI in [employer] ([place] measurements: 1.Measure your weight in pounds (lb). 2.Multiply the number of pounds by 703. For example, for a person who weighs 180 lb, multiply that number by 703, which equals 126,540. 3.Measure your height in inches. Then multiply that number by itself to get a measurement called inches squared. For example, for a person who is 70 inches tall, the inches squared measurement is 70 inches x 70 inches, which equals 4,900 inches squared. 4.Divide the total from step 2 (number of lb x 703) by the total from step 3 (inches squared): 126,540 4,900 = 25.8. This is your BMI. To calculate your BMI in metric measurements: 1.Measure your weight in kilograms (kg). 2.Measure your height in meters (m). Then multiply that number by itself to get a measurement called meters squared. For example, for a person who is 1.75 m tall, the meters squared measurement is 1.75 m x 1.75 m, which is equal to 3.1 meters squared. 3.Divide the number of kilograms (your weight) by the meters squared number. In this example: 70 3.1 = 22.6. This is your BMI. What do the results mean? BMI charts are used to identify whether you are underweight, normal weight, overweight, or obese. The following guidelines will be used: Underweight: BMI less than 18.5. Normal weight: BMI between 18.5 and 24.9. Overweight: BMI between 25 and 29.9. Obese: BMI of 30 or above. Keep these notes in mind: Weight includes both fat and muscle, so someone with a muscular build, such as an athlete, may have a BMI that is higher than 24.9. In cases like these, BMI is not an accurate measure of body fat. To determine if excess body fat is the cause of a BMI of 25 or higher, further assessments may need to be done by a health care provider. BMI is usually interpreted in the same way for men and women. Where to find more information For more information about BMI, including tools to quickly calculate your BMI, go to these websites: Centers for Disease Control and Prevention: www.cdc.gov [employer]: www.heart.org National Heart, Lung, and Blood [place]: www.nhlbi.nih.gov Summary Body mass index (BMI) is a number that is calculated from a person's weight and height. BMI may help estimate how much of a person's weight is composed of fat. BMI can help identify those who may be at higher risk for certain medical problems. BMI can be measured using [employer] measurements or metric measurements. BMI charts are used to identify whether you are underweight, normal weight, overweight, or obese. This information is not intended to replace advice given to you by your health care provider. Make sure you discuss any questions you have with your health care provider. Document Revised: 06/13/2020 Document Reviewed: 04/20/2020 [employer] Patient Education 2022 [employer]. Follow Up Care 03/12/2023 11:01:27 With:ELLEN VALERO DO Address: [address] [place] [address] [place] [address]- When: Unknown [facility] 11-28-2022 History of Presen t illness Narrative The patient was educated on the use of a holter monitor. The patient's comprehension was high. The patient was able to verbalize recall. The patient was instructed on how and when to return the monitor. documented in this encounter [employer] Phone: Evaluation + Plan note No data available for this section [facility] Evaluation note Diagnosis Screening for cardiovascular condition Screening for other and unspecified cardiovascular conditions Family history of diabetes mellitus Irregular menses Irregular menstrual cycle Chronic fatigue Other malaise and fatigue documented in this encounter [employer] Phone: evaluation note* Diagnosis Irregular menses Irregular menstrual cycle documented in this encounter [employer] Phone: evaluation note* Diagnosis Bradycardia Other specified cardiac dysrhythmias Intermittent lightheadedness Dizziness and giddiness documented in this encounter [employer] Phone: evaluation note* Diagnosis Bradycardia Other specified cardiac dysrhythmias Intermittent lightheadedness Dizziness and giddiness documented in this encounter [employer] Phone: evaluation note* Diagnosis Bigeminy Other specified cardiac dysrhythmias Frequent PVCs Other premature beats Bradycardia Other specified cardiac dysrhythmias documented in this encounter [employer] Phone: evaluation note* Diagnosis Loud snoring Sleep apnea, unspecified type Palpitations Acquired hypothyroidism Unspecified hypothyroidism documented in this encounter [employer] Phone: evaluation note* Diagnosis Missed period Irregular menstrual cycle documented in this encounter [employer] [facility]* Diagnosis Spotting affecting in first trimester [facility] Diagnosis Spotting affecting in first trimester [facility] [place] [facility] Diagnosis Spotting affecting in first trimester Empty gestational sac with ongoing Other abnormal products of conception [facility] [place] [facility] Diagnosis Spotting affecting in first trimester Empty gestational sac with ongoing Other abnormal products of conception [facility] [place] [facility] Diagnosis Missed menses 7 weeks gestation of , unspecified gestational age Encounter for supervision of normal first in first trimester documented [facility] this encounter [facility] No data available for this section [facility] Advance Directives No Advanced Directives Records FoundDocuments on File Type Date Recorded Patient Machine Setter Automatic Expl anation ACP-Advance Directive ACP-Power of Health Safety Engineer Reason for Referral Specialty Diagnoses / Procedures Referred By Deedee carter Referred To Contact Diagnoses Bradycardia Intermittent lightheadedness Procedures Holter Monitor 48 Hour Ellen Valero, DO [address] [place] [address] Referral ID Status Reason Start Date Expiration Date Visits Re quested Visits Authorized [id number] Closed 11/27/2022 11/27/2023 1 1 Specialty Diagnoses / Procedures Referred By Deedee carter Referred To Contact Cardiology Diagnoses Bigeminy Frequent PVCs Bradycardia Procedures Echocardiogram complete Ellen Valero, DO [address] [place] [address] Referral ID Status Reason Start Date Expiration Date Visits Requested Visits Authorized [id number] No Precertification Needed 12/04/2022 12/03/2023 1 1 Specialty Diagnoses / Procedures Referred By Deedee carter Referred To Contact Cardiology Diagnoses Bigeminy Frequent PVCs Bradycardia Procedures CARDIAC STRESS TEST EXERCISE ONLY Ellen Valero, DO [address] [place] [address] Referral ID Status Reason Start Date Expiration Date Visits Re quested Visits Authorized [id number] Closed 12/04/2022 12/03/2023 1 1 Specialty Diagnoses / Procedures Referred By Deedee carter Referred To Contact Radiology Diagnoses Spotting affecting in first trimester Empty gestational sac with ongoing Procedures US OB TRANSVAGINAL Ellen Valero, DO [address] [place] [address] Referral ID Status Reason Start Date Expiration Date V isits Requested Visits Authorized [id number] Not Required - RTA 07/19/2024 07/19/2025 1 1 Summary Purpose Family History No Family History Records FoundNo Family History Records FoundNo Family History Records FoundNo Family History Records Found Additional Source Comments Care Teams (unrecognized sec tion and content) Designer/Writer Relationship Specialty Start Date End Date Ellen Valero, DO [address] [place] [address] PCP - General Family Medicine 02/20/21 Designer/Writer Relationship Specialty Start Date End Date Ellen Valero, DO [address] [place] [address] PCP - General Family Medicine 02/20/21 Designer/Writer Relationship Specialty Start Date End Date Ellen Valero DO [address] [place] [address] PCP - General Family Medicine 02/20/21 Designer/Writer Relationship Specialty Start Date End Date Eleln Valero DO [address] [place] [address] PCP - General Family Medicine 02/20/21 Designer/Writer Relationship Specialty Start Date End Date Ellen Valero DO [address] [place] [address] PCP - General Family Medicine 02/20/21 Designer/Writer Relationship Specialty Start Date End Date Ellen Valero DO [address] [place] [address] PCP - General Family Medicine 02/20/21 Designer/Writer Relationship Specialty Start Date End Date Ellen Valero DO [address] [place] [address] PCP - General Family Medicine 02/20/21 Designer/Writer Relationship Specialty Start Date End Date Jeana Valeroica DO Froy [address] [place] [address] PCP - General Family Medicine 02/20/21 Designer/Writer Relationship Specialty Start Date End Date JongsaulEllen devine DO [address] [place] [address] PCP - General Internal Medicine 07/29/24 Reason for Visit (unrecogniz ed section and content) Specialty Diagnoses / Procedures Referred By Contoskar t Referred To Contact Diagnoses Bradycardia Intermittent lightheadedness Procedures Holter Monitor 48 Hour Ellen Valero DO [address] [place] [address] Referral ID Status Reason Start Date Expiration Date Visits Re quested Visits Authorized [id number] Closed 11/27/2022 11/27/2023 1 1 Specialty Diagnoses / Procedures Referred By Contac t Referred To Contact Cardiology Diagnoses Bigeminy Frequent PVCs Bradycardia Procedures Echocardiogram complete Ellen Valero DO [address] [facility] [place] [address] Referral ID Status Reason Start Date Expiration Date Visits Requested Visits Authorized [id number] No Precertification Needed 12/04/2022 12/03/2023 1 1 Specialty Diagnoses / Procedures Referred By Contac t Referred To Contact Cardiology Diagnoses Bigeminy Frequent PVCs Bradycardia Procedures CARDIAC STRESS TEST EXERCISE ONLY Ellen Valero, DO [address] [place] [address] Referral ID Status Reason Start Date Expiration Date Visits Re quested Visits Authorized [id number] Closed 12/04/2022 12/03/2023 1 1 Specialty Diagnoses / Procedures Referred By Contac t Referred To Contact Radiology Diagnoses Spotting affecting in first trimester Procedures US NON OB TRANSVAGINAL W DOPPLER US OB TRANSVAGINAL Ellen Valero Froy, DO [address] [place] [address] Referral ID Status Reason Start Date Expiration Date Visits Re quested Visits Authorized [id number] Open 07/13/2024 07/13/2025 1 1 Specialty Diagnoses / Procedures Referred By Contac t Referred To Contact Radiology Diagnoses Spotting affecting in first trimester Empty gestational sac with ongoing Procedures US OB TRANSVAGINAL Jeana Valeronatalia Mcduffie, DO [address] [place] [address] Referral ID Status Reason Start Date Expiration Date V isits Requested Visits Authorized [id number] Not Required - RTA 07/19/2024 07/19/2025 1 1 Reason Comments Amenorrhea INFORMATION SOURCE (unrecogn ized section and content) DATE CREATED AUTHOR 12/17/2023 [facility] DATE CREATED AUTHOR AUTHOR'S ORGANIZ ATION 07/21/2024 Hortensia marcano DATE CREATED AUTHOR AUTHOR'S ORGANIZ ATION 07/25/2024 Hortensia goldman DATE CREATED AUTHOR AUTHOR'S ORGANIZ ATION 07/30/2024 [facility] FOR RECORDS PERTAINING TO PATIENTS WHO ARE OR HAVE BEEN ENROLLED IN A CHEMICAL DEPENDENCY/SUBSTANCEABUSE PROGRAM, SOME INFORMATION MAY BE OMITTED. This clinical summary was aggregated from multiple sources. Caution should be exercised in using it in the provision of clinical care. This summary normalizes information from multiple sources, and as a consequence, information in this document may materially change the coding, format and clinical context of patient data. In addition, data may be omitted in some cases. CLINICAL DECISIONS SHOULD BE BASED ON THE PRIMARY CLINICAL RECORDS. [facility]. provides no warranty or guarantee of the accuracy or completeness of information in this document.
[2024-08-17 15:36] LABS: Basophils Percent Auto 0.3 % (0.2-2.0); Eosinophils Absolute Auto 0.2 10^3/uL (0.0-0.7); Eosinophils Percent Auto 1.8 % (0.9-7.0); Hematocrit 40.2 % (36.0-48.0); Hemoglobin 14.6 g/dL (12.0-16.0); Immature Granulocytes Abs Auto 0.08 10^3/uL (0.00-0.03); Immature Granulocytes Pct Auto 0.6 % (0.0-0.5); Lymphocytes Absolute Auto 3.4 10^3/uL (1.2-3.8); Lymphocytes Percent Auto 24.6 % (20.5-60.0); Mean Corpuscular HGB Conc 36.3 g/dL (29.9-35.2); Mean Corpuscular Hemoglobin 31.9 pg (26.7-34.0); Mean Corpuscular Volume 87.8 fL (81.0-99.0); Mean Platelet Volume 10.4 fL (9.5-13.5); Monocytes Percent Auto 7.3 % (1.7-12.0); Neutrophils Absolute Auto 8.9 10^3/uL (1.4-6.5); Neutrophils Percent Auto 65.4 % (43.0-75.0); Platelet Count 270 10^3/uL (150-450); Red Blood Count 4.58 10^6/uL (4.20-5.40); Red Cell Distribution Width 11.6 % (11.0-15.0); White Blood Count 13.7 10^3/uL (4.0-11.0)
[2024-08-17 15:48] LABS: Estimated Average Glucose 91 mg/dL; Glycohemoglobin A1C 4.8 % (4.5-6.2)
[2024-08-17 15:50] LABS: Amphetamine Screen Urine NEGATIVE (NEGATIVE); Barbiturates Screen Urine NEGATIVE (NEGATIVE); Benzodiazepines Screen Urine NEGATIVE (NEGATIVE); Buprenorphine Screen Urine NEGATIVE (NEGATIVE); Cannabinoid Screen Urine NEGATIVE (NEGATIVE); Cocaine Screen Urine NEGATIVE (NEGATIVE); Methadone Screen Urine NEGATIVE (NEGATIVE); Methamphetamines Screen Urine NEGATIVE (NEGATIVE); Opiate Screen Urine NEGATIVE (NEGATIVE); Oxycodone Screen Urine NEGATIVE (NEGATIVE); Phencyclidine Screen Urine NEGATIVE (NEGATIVE); Tricyclic Antidepressant Urine NEGATIVE (NEGATIVE)
[2024-08-19 07:09] LABS: HBsAg Screen Negative (Negative); HCV Ab Non Reactive (Non Reactive); HIV Ab/p24 Ag Screen Non Reactive (Non Reactive); Rubella Antibodies, IgG <0.90 index (Immune >0.99)
[2024-08-19 10:10] LABS: Rapid Plasma Reagin, Quant Non Reactive titer (NonRea<1:1)
== END 2024-08-17 15:19 | disposition home or self-care (01) ==
LOC: LAB 15:18
PROVIDERS: PCP Student in an Organized Health Care Education/Training Program; Visit Provider Obstetrics & Gynecology
DX: Z34.01 Encounter for supervision of normal first pregnancy, first trimester (principal); N92.6 Irregular menstruation, unspecified
CPT/HCPCS: 36415; 80307; 83036; 85025; 86592; 86762; 86803; 86850; 86900; 86901; 87086; 87340; 87389

== ENCOUNTER 2024-08-22 16:49 | Outpatient (OUT) | payer BC, SELFPAY ==
--- NOTE | 2024-08-22 16:56 | US_ITS ---
The [address] [address] Patient Name: SHON BLACKWELL MRN: [id number] date: 2000 Sex: F Assigned Patient Location: US Current Patient Location: Accession/Order Number: [id number] Exam Date: 08/22/2024 17:07 Report Date: 08/23/2024 06:37 At the request of: AMBROSIO BENITES Procedure: US OB transvaginal EXAMINATION: US OB transvaginal HISTORY: WITH UNCERTAIN VIABILITY O36.80X0 COMPARISON: No relevant comparison available. FINDINGS: GESTATIONAL SAC: Present YOLK SAC: Present POLE: Present CARDIAC: Absent UTERUS: Normal size and appearance. OVARIES: Right: Corpus lutein cyst. Trace amount of free fluid adjacent the ovary. Left: Normal. CERVIX: 2.8 cm in length with small amount of fluid within cervical canal.. CUL-DE-SAC: Normal. OTHER: None. AGE BY LMP: 11 weeks 1 day [place] BY LMP: 03/12/2025 AGE BY US CRL: 9 weeks 1 day [place] BY US CRL: 03/26/2025 US/US OB transvaginal IMPRESSION: 1. Intrauterine with no detectable heartbeat compatible with demise. Dr. Benites was notified of these findings by the set up mold technician at time of imaging. Electronically authenticated by: SHIREEN TIAN Date: 08/23/2024 06:37
== END 2024-08-22 16:50 | disposition home or self-care (01) ==
PROVIDERS: PCP Student in an Organized Health Care Education/Training Program; Visit Provider Obstetrics & Gynecology
DX: O36.4XX0 Maternal care for intrauterine death, not applicable or unspecified (principal); O36.80X0 Pregnancy with inconclusive fetal viability, not applicable or unspecified; Z3A.11 11 weeks gestation of pregnancy
CPT/HCPCS: 76817

== ENCOUNTER 2024-08-23 13:05 | Outpatient (OUT) | payer BC, SELFPAY | END 2024-08-23 13:06 | disposition home or self-care (01) | LOC: PST 13:05 | PROVIDERS: PCP Student in an Organized Health Care Education/Training Program; Visit Provider Obstetrics & Gynecology | DX: Z01.818 Encounter for other preprocedural examination (principal); O02.1 Missed abortion ==

== ENCOUNTER 2024-08-24 06:20 | Day surgery (SDC) | payer BC, SELFPAY ==
[2024-08-24] VITALS (13 sets, daily range): BP systolic 107–145; BP diastolic 63–88; PULSE 74–103; TEMP 36.6–36.8; O2SAT 93–99; BMI 38.9
--- OUTSIDE RECORDS SUMMARY | 2024-08-24 06:24 | XMS_ITS | CCD ---
Author Organization [facility] Care Team Providers Care Wireless Engineer Name Role Phone Marylu MARLEY Ellen Froy Primary Care Provider [phone] MARYLU ELLEN L Primary Care Physician Rae [...] YONLEY, ELLEN L Primary Care Unavailable Yonley DO, Ellen Primary Care Provider Allergies Allergy Classification Reported Allergen(s) Allergy Type Date of Onset Reaction(s) Facility (1 source) No Known Medication Allergies; Translations: [No Known Medication Allergies] Propensity to adverse reactions (disorder) [facility] Repository Medications Current Medications Medication Drug [...] completed) levothyroxine sodium 0.05 mg oral tablet (12 sources) l-Thyroxine Start: 03-12-2023 levothyroxine 50 mcg (0.05 mg) Tab Refills(s) 0 Start Date: 03/12/23 Status: Ordered Start: 11-20-2022 take 1 tablet by marcia th once daily levothyroxine (SYNTHROID) 50 MCG tablet TAKE 1 TABLET BY MOUTH DAILY 90 tablet 1 07/15/2024 Active ondansetron 4 mg disintegrating oral tablet (1 source) Serotonin-3 Receptor Antagonist Start: 07-29-2024 End: 08-28-2024 take 1 tablet by mouth every six hours for nausea ondansetron ODT (Zofran-ODT) 4 MG disintegrating tablet Indications: Nausea and vomiting during Take 1 tablet (4 mg) by mouth every 6 (six) hours if needed for nausea or vomiting 30 tablet 2 07/29/2024 08/28/2024 Active propranolol hydrochloride 10 mg oral tablet [...] Interpretation and review of laboratory results Abnormal [facility] Preg Test, Ur Positive [facility] Urinalysis macro (dipstick) panel (U)on 07-29-2024 Bilirubin, UA Negative Negative - 4(70) +++ mg/dL [facility] Blood, UA Positive Negative - 50 Amilcar/mcL [facility] Comment on above: trace Clarity, UA Clear [facility] re Color, UA Yellow [facility] Glucose, UA Negative Negative - 1999(110) ++++ mg/dL [facility] Interpretation and review of laboratory results Abnormal [facility] Ketones, UA Negative Negative - 160(16) ++++ mg/dL [facility] Leukocytes, UA Negative Negative - 500+++ Dylon/mcL [facility] Nitrite, UA Negative Negative - Positive [facility] pH, UA 7 5 - [facility] Protein, UA Negative Negative - 2000(20) ++++ mg/dL [facility] Spec Grav, UA 1.015 1 - 1.03 [facility] Urobilinogen, UA 0.2 0.2 - 12 mg/dL [facility] HCG, Quanton 07-21-2024 HCG, Quant 70828.0 mIU/mL High <5 [facility] Comment on above: Result Comment: Non-preg premeno <=5 Postmeno <=8 Male <=3 If HCG results do not concur with clinical observations, additional testing to confirm results is recommended. Performed By: #### B HCG #### [facility] [address] [place] [address] Denture Laboratory Technician: Lincoln Clark MD US OB TRANSVAGINALon 024 [...] Walker Jr., MD 07/21/24 Final result Normal [facility] Single live intrauterine with estimated gestational age 6 weeks 1 day. This gives a sonographic FRANKLYN of 15 March 2025 [facility] RIS CONSOLIDATED EXAM: US OB TRANSVAGINAL [...] ovary: 2.6 x 2.7 x 2.1 cm. [facility] Glenn Ramos Jr., MD - 07/21/2024 EXAM: US OB [...] a sonographic FRANKLYN of 15 March 2025 [facility] Radiology Study observation (narrative) [facility] US OB TRANSVAGINALOrdered By : Glenn Walker on 07-21-2024 [facility] Work Phone: hCG, Quantitative, on 07-21-2024 [place] [address].0 m[IU]/mL High NINF [facility] Comment on above: Non-preg premeno <=5 Postmeno <=8 Male <=3 If HCG results do not concur with clinical observations, additional testing to confirm results is recommended. Interpretation and review of laboratory results Abnormal [facility] US NON OB TRANSVAGINAL W DOP PLERon 07-19-2024 US NON OB TRANSVAGINAL W DOPPLER EXAMINATION: FIRST TRIMESTER PELVIC ULTRASOUND WITH DOPPLER 07/15/2024 TECHNIQUE: Transvaginal first trimester obstetric pelvic duplex ultrasound was performed with real-time imaging, color flow Doppler imaging, and spectral analysis. COMPARISON: None HISTORY: ORDERING SYSTEM PROVIDED HISTORY: Spotting affecting in first trimester TECHNOLOGIST PROVIDED HISTORY: This procedure can be scheduled via MyChart. with LMP 06/05, spotting FINDINGS: Uterus: Measures [...] Yolk Sac: Not identified Pole: Not identified [place] Rump Length: Not applicable Heart Rate: Not [...] Brice Austin MD 07/19/24 Final result Normal [facility] HCG, Quanton 07-14-2024 HCG, Quant 4694.0 mIU/mL High <5 [facility] Comment on above: Result Comment: Non-preg premeno <=5 Postmeno <=8 Male <=3 If HCG results do not concur with clinical observations, additional testing to confirm results is recommended. Performed By: #### B HCG #### [facility] [address] [place] [address] Denture Laboratory Technician: Lincoln Clark MD hCG, Quantitative, on 07-14-2024 HCG.beta subunit Qn 4694.0 m[IU]/mL High [facility] Comment on above: Non-preg premeno <=5 Postmeno <=8 Male <=3 If HCG results do not concur with clinical observations, additional testing to confirm results is recommended. Interpretation and review of laboratory results Abnormal [facility] HCG, Quanton 07-12-2024 HCG, Quant 3141.0 mIU/mL High <5 [facility] Comment on above: Result Comment: Non-preg premeno <=5 Postmeno <=8 Male <=3 If HCG results do not concur with clinical observations, additional testing to confirm results is recommended. Performed By: #### B HCG #### [facility] [address] [place] [address] Denture Laboratory Technician: Lincoln Clark MD hCG, Quantitative, on 07-12-2024 HCG.beta subunit Qn 3141.0 m[IU]/mL High [facility] Comment on above: Non-preg premeno <=5 Postmeno <=8 Male <=3 If HCG results do not concur with clinical observations, additional testing to confirm results is recommended. Interpretation and review of laboratory results Abnormal [facility] Thyroid Stim. Horm.on 2023 Thyroid Stim. Horm. 1.59 uIU/mL Normal 0.30-5.00 [facility] Comment on above: Performed By: #### F T4 #### [facility] [address] [place] [address] Denture Laboratory Technician: aJyce Andrews MD #### TSH #### [facility] [address] [place] [address] Denture Laboratory Technician: Lincoln Clark MD Thyroxine, Freeon 07-01-2024 Thyroxine, Free 1.1 ng/dL Normal 0.92-1.68 [facility] Comment on above: Performed By: #### F T4 #### [facility] [address] [place], [place] [address] Denture Laboratory Technician: Jacye Andrews MD #### TSH #### [facility] [address] [place] [address] Denture Laboratory Technician: Lincoln Clark MD Consenton 12-16-2023 Consent [id number] 4#1.00TIFF Normal [facility] Registrationon 12-16-2023 Registration [id number] 66#1.00TIFF Normal [facility] Registration [id number] 7#1.00TIFF Normal [facility] Basic Metabolic Profon 11-03 Anion gap [Moles/Vol] 11 mmol/L Normal 06-21 [facility] Comment on above: Performed By: #### C DP, TSH, BMP #### [facility] [address] [place] [address] Denture Laboratory Technician: Lincoln Clark MD #### FT4 #### [address] [place], [place] [address] Denture Laboratory Technician: Jayce Andrews MD BUN/CRE Ratio 14 Normal 06-24 [facility] Comment on above: Performed By: #### C DP, TSH, BMP #### [facility] [address] [place] [address] Denture Laboratory Technician: Lincoln Clark MD #### FT4 #### [facility] [address] [place], [place] [id number] Denture Laboratory Technician: Jayce Andrews MD Calcium [Mass/Vol] 9.3 mg/dL Normal 8.6-10.4 [facility] Comment on above: Performed By: #### C DP, TSH, BMP #### [facility] [address] [place], [place] [id number] Denture Laboratory Technician: Lincoln Clark MD #### FT4 #### [address] [place], [place] [address] Denture Laboratory Technician: Jayce Andrews MD Chloride [Moles/Vol] 104 mmol/L Normal 98-107 [facility] Comment on above: Performed By: #### C DP, TSH, BMP #### [facility] [address] [place], [place] [id number] Denture Laboratory Technician: Lincoln Clark MD #### FT4 #### [address] [id number] Denture Laboratory Technician: Jayce Andrews MD CO2 [Moles/Vol] 24 mmol/L Normal 20-31 [facility] Comment on above: Performed By: #### C DP, TSH, BMP #### [facility] [address] [place], [place] [address] Denture Laboratory Technician: Lincoln Clark MD #### FT4 #### [address] [id number] Denture Laboratory Technician: Jayce Andrews MD Creatinine [Mass/Vol] 0.8 mg/dL Normal 0.5-0.9 [facility] Comment on above: Performed By: #### C DP, TSH, BMP #### [facility] [address] [place], [place] 8112[address] Denture Laboratory Technician: Lincoln Clark MD #### FT4 #### [address] [id number] Denture Laboratory Technician: Jayce Andrews MD GFR/1.73 sq M.predicted among non-blacks MDRD (S/P/Bld) [Vol rate/Area] mL/min/{1.73_m2} Normal >60 [facility] Comment on above: Result Comment: These results [...] renal tubular secretion. Performed By: #### C DP, TSH, BMP #### [facility] [address] [place], [place] [id number] Denture Laboratory Technician: Lincoln Clark MD #### FT4 #### [address] [id number] Denture Laboratory Technician: Jayce Andrews MD Glucose [Mass/Vol] 102 mg/dL High 70-99 [facility] Comment on above: Performed By: #### C DP, TSH, BMP #### [facility] [address] [place], [place] 3499290 Denture Laboratory Technician: Lincoln Clark MD #### FT4 #### [address] [id number] Denture Laboratory Technician: Jayce Andrews MD Potassium [Moles/Vol] 4.6 mmol/L Normal 3.7-5.3 [facility] Comment on above: Performed By: #### C DP, TSH, BMP #### [facility] [address] [place], [place] 63[address] Denture Laboratory Technician: Lincoln Clark MD #### FT4 #### [address] [id number] Denture Laboratory Technician: Jayce Andrews MD Sodium [Moles/Vol] 139 mmol/L Normal 135-144 [facility] Comment on above: Performed By: #### C DP, TSH, BMP #### [facility] [address] [place] [address] Denture Laboratory Technician: Lincoln Clark MD #### FT4 #### [address] [place], [place] 3746[address] Denture Laboratory Technician: Jayce Andrews MD Urea nitrogen [Mass/Vol] 11 mg/dL Normal 6-20 [facility] Comment on above: Performed By: #### C DP, TSH, BMP #### [facility] [address] [place] [address] Denture Laboratory Technician: Lincoln Clark MD #### FT4 #### [address] [id number] Denture Laboratory Technician: Jayce Andrews MD CBC with Diffon 11-03-2023 Abs. Basophil 0.03 k/uL Normal 0.00-0.20 [facility] Comment on above: Performed By: #### C DP, TSH, BMP #### [facility] [address] [place] [phone] ( Denture Laboratory Technician: Lincoln Clark MD #### FT4 #### [address] [id number] Denture Laboratory Technician: Jayce Andrews MD Abs.Imm.Granulocyte 0.01 k/uL Normal 0.00-0.30 [facility] Comment on above: Performed By: #### C DP, TSH, BMP #### [facility] [address] [place] [address]167387 ( Denture Laboratory Technician: Lincoln Clark MD #### FT4 #### [address] Denture Laboratory Technician: Jayce Andrews MD Abs.Neutrophil (Seg) 3.61 k/uL Normal 2.5-7.0 [facility] Comment on above: Performed By: #### C DP, TSH, BMP #### [facility] [address] [place] [address] ( Denture Laboratory Technician: Lincoln Clark MD #### FT4 #### [address] [place], [place] 285[address] Denture Laboratory Technician: Jayce Andrews MD Basophils/100 WBC (Bld) 0 % Normal 0-2 M [facility] Comment on above: Performed By: #### C DP, TSH, BMP #### [facility] [address] [place], [place] 7154390 Denture Laboratory Technician: Lincoln Clark MD #### FT4 #### [address] [id number] Denture Laboratory Technician: Jayce Andrews MD Eosinophils (Bld) [#/Vol] 0.13 10*3/uL Normal 0.00-0.40 [facility] Comment on above: Performed By: #### C DP, TSH, BMP #### [facility] [address] [place] [address]73[address] ( Denture Laboratory Technician: Lincoln Clark MD #### FT4 #### [address] [id number] Denture Laboratory Technician: Jayce Andrews MD Eosinophils/100 WBC (Bld) 2 % Normal 0-5 [facility] Comment on above: Performed By: #### C DP, TSH, BMP #### [facility] [address] [place] 0167[address] Denture Laboratory Technician: Lincoln Clark MD #### FT4 #### [address] [phone] Denture Laboratory Technician: Jayce Andrews MD Erythrocyte distribution width (RBC) [Ratio] 11.8 % Low 12.1-15.2 [facility] Comment on above: Performed By: #### C DP, TSH, BMP #### [facility] [address] [place] [address] Denture Laboratory Technician: Lincoln Clark MD #### FT4 #### [address] [place], [place] [address] Denture Laboratory Technician: Jayce Andrews MD Hematocrit (Bld) [Volume fraction] 37.1 % Normal 36.0-46.0 [facility] Comment on above: Performed By: #### C DP, TSH, BMP #### [facility] [address] [place], [place] [address] Denture Laboratory Technician: Lincoln Clark MD #### FT4 #### [address] [address] Denture Laboratory Technician: Jayce Andrews MD Hemoglobin (Bld) [Mass/Vol] 13.5 g/dL Normal 12.0-16.0 [facility] Comment on above: Performed By: #### C DP, TSH, BMP #### [facility] [address] [place] [address] Denture Laboratory Technician: Lincoln Clark MD #### FT4 #### [address] [id number] Denture Laboratory Technician: Jayce Andrews MD Immature granulocytes/100 WBC (Bld) 0 % Normal 0-5 [facility] Comment on above: Performed By: #### C DP, TSH, BMP #### [facility] [address] [place], [place] 7602290 Denture Laboratory Technician: Lincoln Clark MD #### FT4 #### [address] [id number] Denture Laboratory Technician: Jayce Andrews MD Lymphocytes (Bld) [#/Vol] 3.25 10*3/uL Normal 1.00-4.80 [facility] Comment on above: Performed By: #### C DP, TSH, BMP #### [facility] [address] [place], [place] 940[address] Denture Laboratory Technician: Lincoln Clark MD #### FT4 #### [address] [place] [place], [place] [address] Denture Laboratory Technician: Jayce Andrews MD Lymphocytes/100 WBC (Bld) 43 % High 15-40 [facility] Comment on above: Performed By: #### C DP, TSH, BMP #### [facility] [address] [place], [place] 8[address] Denture Laboratory Technician: Lincoln Clark MD #### FT4 #### [facility] [address] [place], [place] [address]25[address] Denture Laboratory Technician: Jayce Andrews MD MCH (RBC) [Entitic mass] 31.2 pg Normal 26.0-34.0 [facility] Comment on above: Performed By: #### C DP, TSH, BMP #### [facility] [address] [place], [place] 998[address] Denture Laboratory Technician: Lincoln Clark MD #### FT4 #### [address] [id number] Denture Laboratory Technician: Jayce Andrews MD MCHC (RBC) [Mass/Vol] 36.4 g/dL Normal 31.0-37.0 [facility] Comment on above: Performed By: #### C DP, TSH, BMP #### [facility] [address] [place] [address] Denture Laboratory Technician: Lincoln Clark MD #### FT4 #### [address] [id number] Denture Laboratory Technician: Jayce Andrews MD MCV (RBC) [Entitic vol] 85.7 fL Normal 80.0-100.0 [facility] Comment on above: Performed By: #### C DP, TSH, BMP #### [facility] [address] [place], [place] 758[address] Denture Laboratory Technician: Lincoln Clark MD #### FT4 #### [address] [address] Denture Laboratory Technician: Jayce Andrews MD Monocytes (Bld) [#/Vol] 0.53 10*3/uL Normal 0.00-1.00 [facility] Comment on above: Performed By: #### C DP, TSH, BMP #### [facility] [address] [place], [place] 436[address] Denture Laboratory Technician: Lincoln Clark MD #### FT4 #### [facility] [address] [place], [place] [address] Denture Laboratory Technician: Jayce Andrews MD Monocytes/100 WBC (Bld) 7 % Normal 4-8 M [facility] Comment on above: Performed By: #### C DP, TSH, BMP #### [facility] [address] [place], [place] 4696290 Denture Laboratory Technician: Lincoln Clark MD #### FT4 #### [address] [address] Denture Laboratory Technician: Jayce Andrews MD Neutrophil (Seg) 48 % Normal 47-75 [facility] Comment on above: Performed By: #### C DP, TSH, BMP #### [facility] [address] [place], [place] 912[address] Denture Laboratory Technician: Lincoln Clark MD #### FT4 #### [address] [address] Denture Laboratory Technician: Jayce Andrews MD Platelet mean volume (Bld) [Entitic vol] 10.4 fL Normal 6.0-12.0 [facility] Comment on above: Performed By: #### C DP, TSH, BMP #### [facility] [address] [place], [place] 5455[address] Denture Laboratory Technician: Lincoln Clark MD #### FT4 #### [address] [address] Denture Laboratory Technician: Jayce Andrews MD Platelets (Bld) [#/Vol] 254 10*3/uL Normal 140-450 [facility] Comment on above: Performed By: #### C DP, TSH, BMP #### [facility] [address] [place], [place] 584[address] Denture Laboratory Technician: Lincoln Clark MD #### FT4 #### [address] [id number] Denture Laboratory Technician: Jayce Andrews MD RBC (Bld) [#/Vol] 4.33 10*6/uL Normal 4.00-5.20 [facility] Comment on above: Performed By: #### C DP, TSH, BMP #### [facility] [address] [place], [place] 404[address] Denture Laboratory Technician: Lincoln Clark MD #### FT4 #### [address] [id number] Denture Laboratory Technician: Jayce Andrews MD WBC (Bld) [#/Vol] 7.6 10*3/uL Normal 3.5-11.0 [facility] Comment on above: Performed By: #### C DP, TSH, BMP #### [facility] [address] [place], [place] 311[address] Denture Laboratory Technician: Lincoln Clark MD #### FT4 #### [address] [id number] Denture Laboratory Technician: Jayce Andrews MD Thyroid Stim. Horm.on 2023 Thyroid Stim. Horm. 2.02 uIU/mL Normal 0.30-5.00 [facility] Comment on above: Performed By: #### C DP, TSH, BMP #### [facility] [address] [place], [place] 3064690 Denture Laboratory Technician: Lincoln Clark MD #### FT4 #### [address] [place] [address] Denture Laboratory Technician: Jayce Andrews MD Thyroxine, Freeon 11-03-2023 Thyroxine, Free 1.4 ng/dL Normal 0.93-1.70 [facility] Comment on above: Performed By: #### C DP, TSH, BMP #### [facility] [address] [place], [place] [address] Denture Laboratory Technician: Lincoln Clark MD #### FT4 #### [facility] [address] [place] [address] Denture Laboratory Technician: Jayce Andrews MD C Urineon 07-11-2023 Bacteria identified Cx Nom (U) Microbiology PROCEDURE: Urine Culture [R1] SOURCE: U CleanCatch BODY SITE: COLLECTED DATE/TIME: 07/09/2023 11:26 EDT RECEIVED DATE/TIME: 07/09/2023 15:22 EDT START DATE/TIME: 07/09/2023 15:22 EDT FREE TEXT SOURCE: Cesar LANGFORD, Wale Vinson. Cesar LANGFORD, Wale Vinson. FINAL REPORTS Final Report [] Verified Date/Time: 07/11/2023 09:31 EDT 20,000 cfu/ml Escherichia coli isolated. >100,000 cfu/ml Staphylococcus saprophyticus Presumptive isolated. Susceptibility testing no longer performed. This organism susceptible to most agents used for UTI treatment per CLSI F260-M70. SUSCEPTIBILITY RESULTS LEGEND: S=Susceptible, N/R=Not Reported, Blank=Data not available, or drug not advisable or tested, I=Intermediate, ESBL=Extended spectrum beta-lactamase, R=Resistant, TFG=Thymidine-depend ent strain, REMINGTON=Beta-lactamase positive, BRIAN=mcg/m;(mg/L), S*=Predicted susceptible interp, R*=Predicted resistant interp EC Antibiotic BRIAN Dilutn BRIAN Interp Amikacin <=16 S Ampicillin [...] Locations R1: This test was performed at: [facility], [address] [place] [address], [phone] , , [facility] Comment on above: Performed By: #### [id number] #### [facility] [address] [place] [address] Family Medicine Office/Clini c Noteon 07-09-2023 Family [...] with voice recognition software. Occasional wrong-word or ?yvspu-l-uzis? substitutions may have occurred due to the [...] day(s), # 21 cap(s), Refills(s) 0, Pharmacy: [email or web address], 166, cm, 07/09/23 9:58:00 EDT, Height/Length Dosing, 90.5, kg, 07/09/23 9:58:00 EDT, Weight Dosing phenazopyridine, 100 mg = 1 tab(s), Oral, TID, X 3 day(s), # 9 tab(s), Refills(s) 0, Pharmacy: [email or web address], 166, cm, 07/09/23 9:58:00 EDT, Height/Length Dosing, 90.5, kg, 07/09/23 9:58:00 EDT, Weight Dosing 2. Urine frequency (R35.0: Frequency of micturition) see above Ordered: cephalexin, 500 mg = 1 cap(s), Oral, q8hr, X 7 day(s), # 21 cap(s), Refills(s) 0, Pharmacy: [email or web address], 166, cm, 07/09/23 9:58:00 EDT, Height/Length Dosing, 90.5, kg, 07/09/23 9:58:00 EDT, Weight Dosing phenazopyridine, 100 mg = 1 tab(s), Oral, TID, X 3 day(s), # 9 tab(s), Refills(s) 0, Pharmacy: [email or web address], 166, cm, 07/09/23 9:58:00 EDT, Height/Length Dosing, 90.5, kg, 07/09/23 9:58:00 EDT, Weight Dosing Urnls Dip Stick Non-Auto w/o Micrscpy POC 29987 3. BMI 32.0-32.9,adult (Z68.32: Body mass index [...] day(s), # 21 cap(s), Refills(s) 0, Pharmacy: [email or web address], 166, cm, 07/09/23 9:58:00 EDT, Height/Length Dosing, 90.5, kg, 07/09/23 9:58:00 EDT, Weight Dosing phenazopyridine, 100 mg = 1 tab(s), Oral, TID, X 3 day(s), # 9 tab(s), Refills(s) 0, Pharmacy: [email or web address], 166, cm, 07/09/23 9:58:00 EDT, Height/Length Dosing, 90.5, kg, 07/09/23 9:58:00 EDT, Weight Dosing Follow-up With When Contact Information [place] [address]- Additional Instructions: Patient Education BMI for Adults Urinary Tract Infection, Adult Problem List/Past Medical History Ongoing Acquired hypothyroidism Anxiety about body function or health Bradycardia Family history of diabetes mellitus Irregular periods Sleep ap (more content not included)... Normal [facility] Comment on above: Result Comment: Elec [...] numbers. This can be done either in [place]gas[place] ([place] or metric measurements. Note that charts and online BMI calculators are available to help you find your BMI quickly and easily without having to do these calculations yourself. To calculate your BMI in [place] ([place] measurements: 1. Measure your weight in [...] for Disease Control and Prevention: www.cdc.gov ? [place] Heart Association: www.heart.org ? National Heart, Lung, and Blood [place]: www.nhlbi.nih.gov Summary ? Body mass index (BMI) is a number that is calculated from a person's weight and height. ? BMI may help estimate how much of a person's weight is composed of fat. BMI can help identify those who may be at higher risk for certain medical problems. ? BMI can be measured using Monegasque measurements or metric measurements. ? BMI charts are used to identify whether you are underweight, normal weight, overweight, or obese. This information is not intended to replace advice given to you by your health care provider. Make sure you discuss any questions you have with your health care provider. Document Revised: 06/13/2020 Document Reviewed: 04/20/2020 [employer] Patient Education ? 2022 [employer]. Obstetrics and Gynecology Urinary Tract Infection, Adult [...] condition if: (more content not included)... Normal [facility] Provider Letteron 03-19-2023 Provider Letter March 19, 2023 SHON BLACKWELL [address] [place] [phone] : 2000 Dear Shon, We have been trying to reach you with no success. It is important that you return our call regarding your test results upon receiving this letter. Also, at the time of your call, please provide us with your current information. Thank you for your prompt attention to this matter. 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 Substitutions may have occurred due to the [...] A Strep by PCR Rapid Strep POC 06990 2. BMI 37.0-37.9, adult (Z68.37: Body mass [...] With When Contact Information [place] [address]- Additional Instructions: Patient Education Pharyngitis BMI for [...] Immunizations Vaccine Date Status Comments SARS-CoV-2 mRNA (gonzalesn 5y-11y) vac - Not Given Postpone due [...] unspecified for (more content not included)... Normal [facility] Comment on above: Result Comment: Elec tronically Signed By: RENAN Mendez APRN, [place] X\.br\Date and Time Signed: 03/12/23 11:57 EDT Grp A Strp PCRon 03-12-2023 Group A Strep Negative Normal [facility] Comment on above: Result Comment: Test ing performed using DNA amplification. Performed By: #### 1 [id number] #### [facility] [address] [place] [address] Grp A Strp Intrl Ctrl Pass Normal [facility] Comment on above: Performed By: #### 1 [id number] #### [facility] [address] [place] [address] Patient Educationon 03-12-20 Patient Education Infectious Disease [...] these instructions at home: Medicines ? Take sljr-pry-bdpsvuj and prescription medicines only as told by [...] and water are not available, use hand retail sales lead. ? Do not touch your eyes, nose, [...] is a (more content not included)... Normal [facility] C-Reactive Proteinon 023 CRP High sensitivity method [Mass/Vol] mg/L 0.0 - 5.0 mg/L [facility] CBC with Auto Differentialon 12-29-2022 Absolute Eos # 0.20 [facility] Absolute Lymph # 2.90 [facility] Absolute [place] # 0.60 [facility] Basophils (Bld) [#/Vol] 0.10 10*3/uL [facility] Basophils/100 WBC (Bld) 1 % 0 - 2 % B ON [facility] Differential Type YES [facility] Eosinophils/100 WBC (Bld) 1 % 0 - 5 % [facility] Hematocrit (Bld) [Volume fraction] 42.0 % 36 - 46 % [facility] Hemoglobin (Bld) [Mass/Vol] 14.5 g/dL 12.0 - 16.0 g/dL [facility] Interpretation and review of laboratory results Abnormal [facility] Lymphocytes/100 WBC (Bld) 25 % 15 - 40 % [facility] MCH (RBC) [Entitic mass] 31.1 pg 26 - 34 pg [facility] MCHC (RBC) [Mass/Vol] 34.5 g/dL 31 - 37 g/dL B ON [facility] MCV (RBC) [Entitic vol] 90.2 fL 80 - 100 fL [facility] Monocytes/100 WBC (Bld) 5 % 4 - 8 % B ON [facility] Platelet distribution width (Bld) [Ratio] 12.3 % 12.1 - 15.2 % [facility] Platelets (Bld) [#/Vol] 258 10*3/uL [facility] RBC (Bld) [#/Vol] 4.66 10*6/uL 4.0 - 5.2 m/uL [facility] Segmented neutrophils/100 WBC (Bld) 68 % 47 - 75 % [facility] Segs Absolute 7.90 High [facility] WBC (Bld) [#/Vol] 11.6 10*3/uL [facility] Comprehensive Metabolic Pane yousif 12-29-2022 Albumin [Mass/Vol] 4.6 g/dL 3.5 - 5.2 g/dL [facility] ALP [Catalytic activity/Vol] 56 U/L 35 - 104 U/L [facility] ALT [Catalytic activity/Vol] 30 U/L 5 - 33 U/L [facility] Anion gap [Moles/Vol] 11 mmol/L 9 - 17 mmol/L [facility] AST [Catalytic activity/Vol] 20 U/L NINF - 32 U/L [facility] Bilirubin [Mass/Vol] 0.4 mg/dL 0.3 - 1 .2 mg/dL [facility] Calcium [Mass/Vol] 8.9 mg/dL 8.6 - 10. 4 mg/dL [facility] Chloride [Moles/Vol] 103 mmol/L 98 - 10 7 mmol/L [facility] CO2 [Moles/Vol] 21 mmol/L 20 - 31 mmol/L [facility] Creatinine [Mass/Vol] 0.72 mg/dL 0.50 - 0.90 mg/dL [facility] GFR/1.73 sq M.predicted MDRD (S/P/Bld) [Vol rate/Area] - PINF [facility] Comment on above: These results are not [...] 101 mg/dL High 70 - 99 mg/dL [facility] Interpretation and review of laboratory results Abnormal [facility] Potassium [Moles/Vol] 4.3 mmol/L 3.7 - 5.3 mmol/L [facility] Protein [Mass/Vol] 7.0 g/dL 6.4 - 8.3 g/dL [facility] Sodium [Moles/Vol] 135 mmol/L 135 - 144 mmol/L [facility] Urea nitrogen [Mass/Vol] 10 mg/dL 6 - 20 mg/dL [facility] Urea nitrogen/Creatinine (Bld) [Mass ratio] 14 9 - 20 [facility] No Panel Informationon 12-29 [facility] Sedimentation Rateon 023 ESR (Bld) [Velocity] 1 mm/h [facility] T4, Freeon 12-29-2022 Free T4 [Mass/Vol] 1.10 ng/dL 0.93 - 1. 70 ng/dL [facility] TSHon 12-29-2022 TSH Qn 2.13 m[IU]/L [facility] Echocardiogram completeon [facility] Transthoracic Echocardiography Report (TTE) Patient Name RISHI Date of Study 12/17/2022 SHON Date of 2000 Gender Female Age 22 year(s) Race Room Number Height: 65 inch, 165.1 cm Corporate ID [id number] Weight: 250 pounds, 113.4 kg # Patient Acct [id number] BSA: 2.17 m^2 BMI: 41.6 kg/m^2 # MR # [id number] Patient Service Representative Jessie Torre, RT Interpreting Physician Skylar Munoz Fellow Referring Nurse Practitioner Interpreting Referring Physician Ellen Valero Type of Study TTE procedure:2D Echocardiogram, M-Mode, Doppler, Color Doppler. Procedure Date Date: 12/17/2022 Start: 08:28 AM Study Location: [facility] Indications:Bradycar padmini. Comments:Bigeminy, frequent PVC's Patient Status: Routine Height: 65 inches Weight: 250.01 pounds BSA: 2.17 m^2 BMI: 41.6 kg/m^2 CONCLUSIONS Summary 1. Normal echocardiogram with no structural abnormalities noted. 2. Normal LV, EF 60% 3. Normal PAP at 24 mmHg 4. Normal valves Signature Electronically signed by RT Jannet(Shelby)(Karel)(CT)([facility])(S onographer) on 12/17/2022 10:26 AM FINDINGS Left [...] Peak Gradient: 4 mmHg Peak TR Gradient: 19.86679 mmHg Estimated RA Pressure: 5 mmHg Estimated PASP: 24.39 mmHg Diastology / Tissue Doppler Septal Wall E' velocity:0.12 m/s Lateral Wall E' velocity:0.18 m/s Lateral Wall E/E':4.55 [facility] Fer Cheng MD - 12/17/2022 [facility] Transthoracic Echocardiography Report (TTE) Patient Name RIHSI Date of Study 12/17/2022 SHON Date of 2000 Gender Female Age 22 year(s) Race Room Number Height: 65 inch, 165.1 cm Corporate ID [id number] Weight: 250 pounds, 113.4 kg # Patient Acct [id number] BSA: 2.17 m^2 BMI: 41.6 kg/m^2 # MR # [id number] Patient Service Representative Jessie Torre RT Interpreting Physician Skylar Munoz Fellow Referring Nurse Practitioner Interpreting Referring Physician Ellen Valero Type of Study TTE procedure:2D Echocardiogram, M-Mode, Doppler, Color Doppler. Procedure Date Date: 12/17/2022 Start: 08:28 AM Study Location: [facility] Indications:Bradycar padmini. Comments:Susi, leanne PVC's Patient Status: Routine Height: 65 inches [...] Peak Gradient: 4 mmHg Peak TR Gradient: 19.98316 mmHg Estimated RA Pressure: 5 mmHg Estimated PASP: 24.39 mmHg Diastology / Tissue Doppler Septal Wall E' velocity:0.12 m/s Lateral Wall E' velocity:0.18 m/s Lateral Wall E/E':4.55 [employer] Work Phone: Echocardiogram completeOrder ed By: Fer Cheng on 12-17-2022 [employer] Phone: Basic Metabolic Panelon 11-05 Anion gap [Moles/Vol] 13 mmol/L 9 - 17 mmol/L [facility] Calcium [Mass/Vol] 9.3 mg/dL 8.6 - 10. 4 mg/dL [facility] Chloride [Moles/Vol] 103 mmol/L 98 - 10 7 mmol/L [facility] CO2 [Moles/Vol] 21 mmol/L 20 - 31 mmol/L [facility] Creatinine [Mass/Vol] 0.72 mg/dL 0.50 - 0.90 mg/dL [facility] GFR/1.73 sq M.predicted MDRD (S/P/Bld) [Vol rate/Area] - PINF [facility] Comment on above: These results are not [...] 102 mg/dL High 70 - 99 mg/dL [facility] Interpretation and review of laboratory results Abnormal [facility] Potassium [Moles/Vol] 4.2 mmol/L 3.7 - 5.3 mmol/L [facility] Sodium [Moles/Vol] 137 mmol/L 135 - 144 mmol/L [facility] Urea nitrogen [Mass/Vol] 10 mg/dL 6 - 20 mg/dL [facility] Urea nitrogen/Creatinine (Bld) [Mass ratio] 14 9 - 20 [facility] T4, Freeon 11-19-2022 Free T4 [Mass/Vol] 0.85 ng/dL Low 0.93 - 1. 70 ng/dL [facility] Interpretation and review of laboratory results Abnormal [facility] TSHon 11-19-2022 TSH Qn 1.54 m[IU]/L [facility] Follicle Stimulating Hormone on 07-03-2022 FSH 6.9 [facility] Comment on above: Reference Range: Male: 1.5-12.4 Ovulating Female: Follicular Phase 3.5-12.5 Ovulation Phase 4.7-21.5 Luteal Phase 1.7-7.7 Postmenopausal Female: 25.8-134.8 Glucose, Fastingon Glucose [Mass/Vol] 110 mg/dL High 70 - 99 mg/dL [facility] Interpretation and review of laboratory results Abnormal [facility] Insulin, Totalon 07-03-2022 Insulin 22.7 mU/L [facility] Insulin Comment FASTING [facility] Insulin Reference Range: [facility] Comment on above: Fastin.6-24.9 30 min: 20-112 60 min: 29-88 90 min: 26-84 120 min: 22-79 Luteinizing Hormoneon 2021 LH 8.6 [facility] Comment on above: Reference Range: Male: 1.7-8.6 Ovulating Female: Follicular Phase 2.4-12.6 Ovulation Phase 14.0-95.6 Luteal Phase 1.0-11.4 Postmenopausal Female: 7.7-58.5 No Panel Informationon 07-03 [facility] [employer] Prolactinon 07-03-2022 Prolactin 16.84 ng/mL 4.79 - 23.3 ng/mL [facility] Comment on above: The presence of macr oprolactin may cause interference in female patients with various endocrinological diseases or during . [facility] Lipid PanelOrdered By: Joceline Valero on 04-03-2021 Cholesterol [Mass/Vol] 187 mg/dL <200 [facility] Work Phone: Comment on above: Cholesterol Guidelines: <200 Desirable 200-240 Borderline >240 Undesirable Cholesterol in HDL [Mass/Vol] 37 mg/dL Low >40 [facility] Phone: Comment on above: HDL Guidelines: <40 Undesirable 40-59 Borderline >59 Desirable Cholesterol in LDL [Mass/Vol] 116 mg/dL 0 - 130 mg/dL [employer] Phone: Comment on above: LDL Guidelines: <100 Desirable 100-129 Near to/above Desirable 130-159 Borderline >159 Undesirable Direct (measured) LDL and calculated LDL are not interchangeable tests. Cholesterol in VLDL [Mass/Vol] NOT REPORTED High 1 - 30 mg/dL [employer] Phone: Cholesterol.total/Polly sterol in HDL [Mass ratio] 5.1 {ratio} High <5 [employer] Phone: Interpretation and review of laboratory results Abnormal [employer] Phone: Triglyceride [Mass/Vol] 169 mg/dL High <150 M [employer] Work Phone: Comment on above: Triglyceride Guidelines: <150 Desirable 150-199 Borderline 200-499 High >499 Very high Based on AHA Guidelines for fasting triglyceride, July 2012. [employer] Phone: CBC Auto DifferentialOrdered By: Ellen Valero on 04-02-2021 Absolute Eos # 0.10 amiando [facility] Work Phone: Absolute Immature Granulocyte NOT REPORTED [employer] Phone: Absolute Lymph # 3.20 [facility] Work Phone: Absolute [place] # 0.70 [facility] Work Phone: Basophils (Bld) [#/Vol] 0.00 10*3/uL [employer] Work Phone: Basophils/100 WBC (Bld) 0 % 0 - 2 % [employer] Phone: Differential Type YES [employer] Work Phone: Eosinophils/100 WBC (Bld) 1 % 0 - 5 % [employer] Work Phone: Hematocrit (Bld) [Volume fraction] 37.9 % 36 - 46 % [employer] Work Phone: Hemoglobin.gastrointest inal spec 1 Ql (Stl) 13.4 g/dL 12.0 - 16.0 g/dL [employer] Phone: Immature Granulocytes NOT REPORTED 0 % M [employer] Work Phone: Lymphocytes/100 WBC (Bld) 36 % 15 - 40 % [employer] Work Phone: MCH (RBC) [Entitic mass] 31.3 pg 26 - 34 pg [employer] Work Phone: MCHC (RBC) [Mass/Vol] 35.5 g/dL 31 - 37 g/dL M [employer] Work Phone: MCV (RBC) [Entitic vol] 88.1 fL 80 - 100 fL [employer] Work Phone: Monocytes/100 WBC (Bld) 8 % 4 - 8 % M [employer] Work Phone: NRBC Automated NOT REPORTED per 100 WBC [employer] Work Phone: Platelet distribution width (Bld) [Ratio] 12.5 % 12.1 - 15.2 % [employer] Phone: Platelet Estimate NOT REPORTED [employer] Phone: Platelet mean volume (Bld) [Entitic vol] NOT REPORTED 6.0 - 12.0 fL [employer] Work Phone: Platelets (Bld) [#/Vol] 262 10*3/uL [employer] Phone: RBC (Bld) [#/Vol] 4.30 10*6/uL 4.0 - 5.2 m/uL [employer] Phone: RBC (Bld) [#/Vol] NOT REPORTED [employer] Work Phone: Segmented neutrophils/100 WBC (Bld) 55 % 47 - 75 % [employer] Work Phone: Segs Absolute 4.90 amiando [facility] [employer] Work Phone: WBC (Bld) [#/Vol] 9.0 10*3/uL [employer] Phone: WBC (Bld) [#/Vol] NOT REPORTED [employer] Phone: [employer] Work Phone: Comprehensive Metabolic Pane lOrdered By: Ellen Valero on 04-02-2021 Albumin [Mass/Vol] 4.2 g/dL 3.5 - 5.2 g/dL [employer] Phone: Albumin/Globulin Ratio NOT REPORTED [employer] Phone: ALP (Bld) [Catalytic activity/Vol] 45 U/L 35 - 104 U/L [employer] Phone: ALT [Catalytic activity/Vol] 20 U/L 5 - 33 U/L [employer] Phone: Anion gap [Moles/Vol] 9 mmol/L 9 - 17 mmol/L [employer] Phone: AST [Catalytic activity/Vol] 17 U/L <32 [employer] Phone: Bilirubin [Mass/Vol] 0.20 mg/dL Low 0.30 - 1.20 mg/dL [employer] Phone: Calcium [Mass/Vol] 8.9 mg/dL 8.6 - 10. 4 mg/dL [employer] Phone: Chloride [Moles/Vol] 106 mmol/L 98 - 10 7 mmol/L [employer] Phone: CO2 [Moles/Vol] 22 mmol/L 20 - 31 mmol/L [employer] Phone: Creatinine [Mass/Vol] 0.84 mg/dL 0.50 - 0.90 mg/dL [employer] Phone: Free PSA/Total PSA [Mass fraction] 6.5 g/dL 6.4 - 8.3 g/dL [employer] Phone: GFR >60 >60 mL/min [employer] Phone: GFR Non- >60 >60 mL/min [employer] Phone: GFR/1.73 sq M.predicted MDRD (S/P/Bld) [Vol rate/Area] [employer] Phone: Comment on above: Average GFR for 20-2 9 years old: 116 mL/min/1.73sq m Chronic Kidney Disease: <60 mL/min/1.73sq m Kidney failure: <15 mL/min/1.73sq m eGFR calculated using average adult body mass. Additional eGFR calculator available at: http://www.virtual twe[employer]td/multiple_crcl_2012.htm GFR/1.73 sq M.predicted MDRD (S/P/Bld) [Vol rate/Area] NOT REPORTED [employer] Phone: Glucose [Mass/Vol] 97 mg/dL 70 - 99 mg/dL [employer] Phone: Interpretation and review of laboratory results Abnormal [employer] Phone: Potassium [Moles/Vol] 4.1 mmol/L 3.7 - 5.3 mmol/L [employer] Phone: Sodium [Moles/Vol] 137 mmol/L 135 - 144 mmol/L [employer] Phone: Urea nitrogen (BldV) [Mass/Vol] 11 mg/dL 6 - 20 mg/dL [employer] Phone: Urea nitrogen/Creatinine (Bld) [Mass ratio] 13 [employer] Phone: No Panel InformationOrdered By: Ellen Valero on 04-02-2021 [employer] Phone: Patient Fasting?Ordered By: Ellen Valero on 04-02-2021 Patient Fasting? NO [employer] Phone: [employer] Phone: TSH with ReflexOrdered By: Jayce Valero on 04-02-2021 TSH Qn 1.86 m[IU]/L [employer] Phone: Vital Signs Date Time Vital Sign Value Performing Clinician Facility 07-29-2024 10:07-0400 Body mass index (BMI) [Ratio] 36.02 kg/m2 [facility] 07-29-2024 10:07-0400 Body weight 104.33 kg [facility] 07-29-2024 10:07-0400 Diastolic blood pressure 74 mm[Hg] [facility] 07-29-2024 10:07-0400 Systolic blood pressure 118 mm[Hg] [facility] Nurse [facility] 03-12-2023 11:26-0400 Blood Pressure Location [facility] 03-12-2023 11:26-0400 Body temperature 99.14 [degF] [facility] 03-12-2023 11:26-0400 Diastolic blood pressure 84 mm[Hg] [facility] 03-12-2023 11:26-0400 Heart rate 66 /min [facility] 03-12-2023 11:26-0400 SaO2% (BldA) [Mass fraction] 98 % [facility] 03-12-2023 11:26-0400 Systolic blood pressure 128 mm[Hg] [facility] Encounters Encounter Date Encounter Type Care Provider Facility Start: 08-22-2024 End: 08-22-2024 Bamboo flowsheet Farhat Kamari DO Work Phone: [facility] Start: 08-22-2024 End: 08-22-2024 Bamboo flowsheet Farhat Kamari DO Work Phone: [facility] Start: 07-29-2024 End: 07-29-2024 ambulatory [facility] Kamari Nurse [facility] Comment on above: GA: 7w5d Start: 07-21-2024 End: 07-21-2024 [facility] Start: 07-21-2024 End: 07-21-2024 Subsequent hospital visit by physician Ellen Valero DO Work Phone: [facility] Comment on above: Spotting affecting p regnancy in first trimester; Empty gestational sac with ongoing Start: 07-21-2024 End: 07-23-2024 [facility] Start: 07-21-2024 End: 07-23-2024 Subsequent hospital visit by physician Ellen Valero DO Work Phone: [facility] Comment on above: Spotting affecting p regnancy in first trimester; Empty gestational sac with ongoing Start: 07-15-2024 End: 07-17-2024 [facility] Start: 07-15-2024 End: 07-17-2024 Subsequent hospital visit by physician [facility] Ultrasound Room 2 At [facility] Ultrasound Comment on above: Spotting affecting p regnancy in first trimester Start: 07-14-2024 End: 07-14-2024 [facility] Start: 07-14-2024 End: 07-14-2024 Subsequent hospital visit by physician Ellen Valero DO Work Phone: [facility] Comment on above: Spotting affecting p regnancy in first trimester Start: 07-12-2024 End: 07-12-2024 [facility] Start: 07-12-2024 End: 07-12-2024 Subsequent hospital visit by physician Ellen Valero DO Work Phone: [facility] Comment on above: Missed period Start: 07-01-2024 End: 07-01-2024 [facility] Start: 12-16-2023 End: 12-17-2023 [facility] Facility:[facility] Start: 11-03-2023 End: 11-03-2023 [facility] Start: 07-09-2023 End: 07-10-2023 ambulatory Wale Guerrero Facility:[facility] Start: 07-09-2023 End: 07-10-2023 ambulatory Wale Guerrero Facility:[facility] Start: 03-12-2023 End: 03-13-2023 ambulatory Rae X Orzech Facility:[facility] Start: 03-12-2023 End: 03-13-2023 ambulatory Rae X Orzech Facility:[facility] Start: 03-12-2023 End: 03-12-2023 Patient encounter procedure Rae X Orzech [facility] Start: 12-29-2022 End: 12-29-2022 Subsequent hospital visit by physician Ellen Valero DO Work Phone: [facility] Comment on above: Loud snoring; Sleep apnea, unspecified type; Palpitations; Acquired hypothyroidism Start: 12-18-2022 End: 12-18-2022 Subsequent hospital visit by physician [facility] Stress Rm [facility] Stress Lab Comment on above: Bigeminy; Frequent PVCs; Bradycardia Start: 12-17-2022 End: 12-17-2022 Subsequent hospital visit by physician [facility] Echo Room [facility] ECHO Comment on above: Bigeminy; Frequent PVCs; Bradycardia Start: 11-28-2022 End: 11-28-2022 Subsequent hospital visit by physician [facility] Ekg [facility] EKG Comment on above: [...] uterus real time w/image dcmtn transvag Ellen Mcduffie Jongkathi DO Work Phone: Start: 07-14-2024 Gonadotropin chorion [...] Basic metabolic pane l calcium total Ellen Mcduffie Jongkathi DO Work Phone: Start: 07-03-2022 Gonadotropin follicl e stimulating hormone Ellen Valero DO Work Phone: Start: 04-02-2021 Comprehensive metabo lic panel Ellen Valero DO Work Phone: Start: 04-02-2021 Lipid panel Ellenritu Sunshinesaulnilson DO Work Phone: Start: 04-02-2021 PATIENT FASTING? Brandon paris Valero DO Work Phone: Plan of Treatment Date Care Activity Detail Author Start: 07-08-2025 Depression Screen Depression Screen [facility] Start: 08-22-2024 End: 08-22-2024 Patient encounter procedure [facility] Comment on above: Arrived Start: 07-29-2024 End: 07-29-2025 ABO/Rh ABO/Rh Lab Routine Missed menses , unspecified gestational age Expected: 07/29/2024 (Approximate), Expires: 07/29/2025 [facility] Comment on above: Expected: 07/29/2024 (Approximate), Expires: 07/29/2025 Start: 07-29-2024 End: 07-29-2025 Blood type and Indirect antibody screen panel - Blood Type and screen Lab Routine Missed menses , unspecified gestational age Expected: 07/29/2024 (Approximate), Expires: 07/29/2025 [facility] Work Phone: Comment on above: Expected: 07/29/2024 (Approximate), Expires: 07/29/2025 Start: 07-29-2024 End: 07-29-2025 Drugs of abuse panel - Urine by Screen method Rapid drug screen, urine Lab Routine , unspecified gestational age Encounter for supervision of normal first in first trimester Expected: 07/29/2024 (Approximate), Expires: 07/29/2025 [facility] Comment on above: Expected: 07/29/2024 (Approximate), Expires: 07/29/2025 Start: 07-29-2024 End: 07-29-2025 US Pelvis transvaginal US OB transvaginal Imaging Routine Missed menses Expected: 07/29/2024 (Approximate), Expires: 07/29/2025 [facility] Comment on above: Expected: 07/29/2024 (Approximate), Expires: 07/29/2025 Start: 07-15-2024 End: 07-15-2024 Patient encounter procedure 07/15/2024 11:30 AM EDT Appointment [facility] Ultrasound [address] [place], [place] [id number] Pinkish/brown discharge - ordered from doctor [facility] Comment on above: Pinkish/brown discha rge - ordered from doctor Start: 06-05-2024 COVID-19 Vaccine ( season) COVID-19 Vaccine ( season) [facility] Start: 05-05-2024 Influenza vaccination Flu vaccine (# 1) [facility] Start: 11-19-2023 Depression Screen Depression Screen [facility] Start: 07-06-2023 DTaP/Tdap/Td vaccine (7 - Td or Tdap) DTaP/Tdap/Td vaccine (7 - Td or Tdap) [facility] Start: 07-02-2023 Depression Screen Depression Screen [facility] Start: 03-30-2023 End: 03-30-2023 Patient encounter procedure 03/30/2023 Office Visit Cardiology Fer Cheng MD [address] [place] [address] [facility] [employer] Start: 03-11-2023 End: 03-11-2023 Patient encounter procedure 03/11/2023 Appointment EKG [facility] Start: 12-24-2022 End: 12-24-2022 Patient encounter procedure 12/24/2022 Office Visit Cardiology Fer Cheng MD [address] [place] [address] [facility] [employer] Start: 12-18-2022 Subsequent hospital visit by physician 12/18/2022 Hospital Encounter Stress Lab [facility] Start: 05-05-2022 Influenza vaccination Flu vaccine (# 1) [facility] Start: 2022 Screening for malignant neoplasm of cervix Pap smear [facility] Start: 06-05-2021 Influenza vaccination Flu vacc ine (Season Ended) [facility] Work Phone: Start: 2019 Hepatitis C screening Hepatitis C sc reen [facility] Start: 2017 Screening for Chlamydia trachomatis [facility] Start: 01-26-2016 HIV screening HIV screen [facility] [employer] Start: 01-26-2016 HPV vaccine (1 - 3-dose series) HPV vaccine (1 - 3-dose series) [employer] Start: 2013 COVID-19 Vaccine (1) COVID-19 Vaccin e (1) [employer] Phone: Start: 01-26-2012 HPV vaccine (1 - 2-dose series) HPV vaccine (1 - 2-dose series) [employer] Start: 2005 Varicella vaccine (2 of 2 - 2-dose childhood series) Varicella vaccine (2 of 2 - 2-dose childhood series) [employer] Start: 2001 COVID-19 Vaccine (#1) COVID-19 Vacci ne (#1) [employer] Start: 2001 Hepatitis C screening Hepatitis C sc donny [employer] Phone: End: 12-29-2022 RAMON profile [employer] Phone: Comment on above: 1 Occurrences starti ng 12/29/2022 until 12/29/2022 Bacteria identified in Urine by Culture Urine culture Microbiology Routine Missed menses Ordered: 07/29/2024 [facility] [employer] Comment on above: Ordered: 07/29/2024 CBC W Auto Differential panel - Blood CBC and differential Lab Routine Missed menses , unspecified gestational age Ordered: 07/29/2024 [employer] Comment on above: Ordered: 07/29/2024 End: 12-18-2022 Exercise stress test study CARDIAC STRESS TEST EXERCISE ONLY Cardiac Services Routine Bigeminy Frequent PVCs Bradycardia 1 Occurrences starting 12/18/2022 until 12/18/2022 [employer] Phone: Comment on above: 1 Occurrences starti ng 12/18/2022 until 12/18/2022 End: 04-02-2021 Hemoglobin A1c/Hemoglobin.total in Blood Hemoglobin A1C Lab Routine Family history of diabetes mellitus Irregular menses 1 Occurrences starting 04/02/2021 until 04/02/2021 [employer] Phone: Comment on above: 1 Occurrences starti ng 04/02/2021 until 04/02/2021 Hemoglobin A1c/Hemoglobin.total in Blood Hemoglobin A1C Lab Routine Family history of diabetes mellitus Irregular menses 04/02/2021 2:59 PM EDT [employer] Phone: Hemoglobin A1c/Hemoglobin.total in Blood Hemoglobin A1c Lab Routine Missed menses , unspecified gestational age Ordered: 07/29/2024 [facility] Comment on above: Ordered: 07/29/2024 Hepatitis B virus surface Ag [Presence] in Serum or Plasma by Immunoassay Hepatitis B surface antigen Lab Routine Missed menses , unspecified gestational age Ordered: 07/29/2024 [facility] Comment on above: Ordered: 07/29/2024 Hepatitis C virus Ab [Presence] in Serum or Plasma by Immunoassay Hepatitis C antibody Lab Routine Missed menses , unspecified gestational age Ordered: 07/29/2024 [facility] Comment on above: Ordered: 07/29/2024 HIV-1/HIV-2 antigen/antibody combination immunoassay HIV-1 and HIV-2 antibodies Lab Routine Missed menses , unspecified gestational age Ordered: 07/29/2024 [facility] Comment on above: Ordered: 07/29/2024 End: 11-28-2022 Holter Monitor 48 Hour Holter Monitor 48 Hour Cardiac Services Routine Bradycardia Intermittent lightheadedness 1 Occurrences starting 11/28/2022 until 11/28/2022 [facility] [employer] Phone: Comment on above: 1 Occurrences starti ng 11/28/2022 until 11/28/2022 Reagin Ab [Presence] in Serum by RPR RPR Lab Routine Missed menses , unspecified gestational age Ordered: 07/29/2024 [facility] Comment on above: Ordered: 07/29/2024 Rubella antibody, IgG Rubella an tibody, IgG Lab Routine Missed menses , unspecified gestational age Ordered: 07/29/2024 [facility] Comment on above: Ordered: 07/29/2024 End: 12-29-2022 Thyroid Antibodies [facility] [employer] Phone: Comment on above: 1 Occurrences starti ng 12/29/2022 until 12/29/2022 End: 07-15-2024 US Pelvis transvaginal [facility] [employer] Comment on above: 1 Occurrences starti ng 07/15/2024 until 07/15/2024 Immunizations Immunization Date Immunization Notes Care Provider Fa piterty 11-06-2019 influenza virus vaccine, unspecified formulation [employer] [facility] 11-06-2019 Influenza, injectabl e, Madin [place]ura Canine Kidney, preservative free, quadrivalent Ellen Yonley DO Work Phone: [employer] Work Phone: 06-01-2019 hepatitis B vaccine, adult dosage [employer] [facility] 06-01-2019 varicella virus vaccine [employer] [facility] 06-23-2018 meningococcal ACWY vaccine, unspecified formulation [employer] [facility] Comment on above: Result Comment: 2022: VIS DATE: 01/03/2016 06-23-2018 meningococcal polysaccharide (groups A, C, Y and W-135) diphtheria toxoid conjugate vaccine (MCV4P) Ellen Jongnley DO Work Phone: [employer] Phone: 05-09-2016 meningococcal ACWY vaccine, unspecified formulation [employer] [facility] 05-09-2016 meningococcal polysaccharide (groups A, C, Y and W-135) diphtheria toxoid conjugate vaccine (MCV4P) Ellen Yonley DO Work Phone: [employer] Work Phone: 07-06-2013 tetanus toxoid, redu tomasz diphtheria toxoid, and acellular pertussis vaccine, adsorbed Ellen Yonley DO Work Phone: [facility] [employer] 04-22-2006 diphtheria, tetanus toxoids and acellular pertussis vaccine Ellen Yonley DO Work Phone: [facility] [employer] Work Phone: 04-22-2006 DTaP, unspecified formulation [employer] [facility] 04-22-2006 measles, mumps and rubella virus vaccine Ellen Valero DO Work Phone: [facility] Work Phone: 04-22-2006 poliovirus vaccine, inactivated Ellen Valero DO Work Phone: [facility] Work Phone: 04-22-2006 poliovirus vaccine, unspecified formulation [employer] [facility] 07-24-2004 diphtheria, tetanus toxoids and acellular pertussis vaccine Ellen Valero DO Work Phone: [facility] Work Phone: 07-24-2004 DTaP, unspecified formulation [employer] [facility] 07-24-2004 haemophilus influenz ae type b vaccine, conjugate unspecified formulation Ellen Valero DO Work Phone: [facility] 07-24-2004 Hib, unspecified formulation [employer] [facility] 07-06-2004 haemophilus influenz ae type b vaccine, PRP-OMP conjugate [employer] [facility] 07-06-2004 Hib, unspecified Ellen thapa DO Work Phone: [facility] Work Phone: 05-25-2002 diphtheria, tetanus toxoids and acellular pertussis vaccine Ellen Valero DO Work Phone: [facility] Work Phone: 05-25-2002 DTaP, unspecified formulation [employer] [facility] 05-25-2002 haemophilus influenz ae type b vaccine, conjugate unspecified formulation [facility] 05-25-2002 hepatitis B vaccine, adult dosage Ellen Valero DO [facility] Phone: [facility] Work Phone: 05-25-2002 hepatitis B vaccine, pediatric or pediatric/adolescent dosage [employer] [facility] 05-25-2002 hepatitis B vaccine, unspecified formulation Ellen Valero DO Work Phone: [employer] Work Phone: 05-25-2002 Hib, unspecified Ellen Sunshinen elier DO Work Phone: [employer] Work Phone: 05-25-2002 Hib, unspecified formulation [employer] [facility] 05-25-2002 measles, mumps and rubella virus vaccine Ellen Valero DO Work Phone: [employer] Work Phone: 05-25-2002 poliovirus vaccine, inactivated Ellen Valero DO Work Phone: [employer] Work Phone: 05-25-2002 poliovirus vaccine, unspecified formulation [employer] [facility] 05-25-2002 varicella virus vaccine Jeana Valero DO Work Phone: [employer] Work Phone: 2001 diphtheria, tetanus toxoids and acellular pertussis vaccine Ellen Valero DO Work Phone: [employer] Work Phone: 2001 DTaP, unspecified formulation [employer] [facility] 2001 haemophilus influenz ae type b vaccine, PRP-OMP conjugate [employer] [facility] 2001 Hib, unspecified Ellen Yon elier DO Work Phone: [employer] Work Phone: 2001 pneumococcal conjuga te vaccine, 7 valent Ellen Yonley DO Work Phone: [employer] Phone: 2001 poliovirus vaccine, inactivated Ellen Yonley DO Work Phone: [employer] Phone: 2001 poliovirus vaccine, unspecified formulation [employer] [facility] 2001 diphtheria, tetanus toxoids and acellular pertussis vaccine Ellen Yonley DO Work Phone: [employer] Phone: 2001 DTaP, unspecified formulation [employer] [facility] 2001 haemophilus influenz ae type b vaccine, PRP-OMP conjugate [employer] [facility] 2001 hepatitis B vaccine, adult dosage Ellen Yonley DO Work Phone: [facility] [employer] Work Phone: 2001 hepatitis B vaccine, pediatric or pediatric/adolescent dosage [employer] [facility] 2001 hepatitis B vaccine, unspecified formulation Ellen Yonley DO Work Phone: [employer] Work Phone: 2001 Hib, unspecified Ellen Yon elier DO Work Phone: [employer] Work Phone: 2001 pneumococcal conjuga te vaccine, 7 valent Ellen Yonley DO Work Phone: [employer] Work Phone: 2001 poliovirus vaccine, inactivated Ellen Yonley DO Work Phone: [employer] Work Phone: 2001 poliovirus vaccine, unspecified formulation [employer] [facility] 2001 hepatitis B vaccine, adult dosage Ellen Yonley DO Work Phone: [facility] [employer] Work Phone: 2001 hepatitis B vaccine, pediatric or pediatric/adolescent dosage [employer] [facility] 2001 hepatitis B vaccine, unspecified formulation Ellen Yonley DO Work Phone: [employer] Work Phone: NEGATED: Highlighted row has not occurred!03-12-2023 SARS-CoV-2 mRNA (tozinameran 5y-11y) vaccine [employer] [facility] Payers Date Payer Category Payer [facility] [id number] 2018 Unknown [id number] 2001 Unknown [id number] [id number] 2001 Unknown [id number] [id number] 2001 Unknown [id number]. [id number] 2001 Unknown [id number]. [id number] 2001 Unknown [id number]. [id number] 2001 Unknown [id number]. [id number] 2001 Unknown [id number] [id number] 2001 Unknown [id number]. 2.174 2001 Unknown [id number] [id number]. [id number] 2001 Unknown [id number] [id number] 2001 Unknown [id number] [id number] 2001 Unknown [id number] Social History Date Type Detail Facility Start: 04-02-2021 End: 04-17-2023 Tobacco smoking status NHIS Never smoker [facility] Work Phone: Start: 04-02-2021 End: 07-02-2022 Tobacco use and exposure Never used [employer] Start: 04-02-2021 End: 11-19-2022 Alcohol intake Not Asked [employer] Work Phone: Start: 04-02-2021 End: 07-29-2024 Alcohol intake [employer] Work Phone: Start: 02-20-2021 End: 11-19-2022 History SDOH Financial 5 [employer] Work Phone: Start: 02-20-2021 End: 11-19-2022 History SDOH Food Worry 1 [employer] Work Phone: Start: 2001 [facility]: Start: 11-19-2022 History SDOH Transpo rt Non-Med 2 [employer] Work Phone: Tobacco smoking status Never [facility] Start: 07-08-2024 End: 07-29-2024 Sex Assigned At Female [facility] Start: 07-08-2024 Alcoholic beverage intake Current drinker of alcohol (finding) [employer] How hard is it for y ou to pay for the very basics like food, housing, medical care, and heating Not very hard [employer] (I/We) worried michelle er (my/our) food would run out before (I/we) got money to buy more. Never true [employer] At any time in the past 12 months, were you homeless or living in long term [including now]? No [employer] Start: 11-03-2023 Alcohol Comment recreational drinkin g [employer] Start: 07-29-2024 Alcoholic beverage intake Lifetime non-drinker (finding) [facility] Start: 04-17-2023 Alcohol Comment Caffeine intak e: 1-2 cups per day [facility] Start: 06-19-2024 [facility] Start: 2001 [facility] Start: 07-24-2024 Gender identity Identifies as female gender (finding) [facility] Functional Status Date Assessment Result Facility 03-12-2023 Functional Status N/A [facility] Clinical Notes 11-28-2022 to 07-29-2024 Valerieedilberto Randolph, MA - 07/29/2024 9:30 AM EDTCjossy Fallon RCP - 11/28/2022 12:30 PM EST Note Date [...] Nurse Note: Pt will think about the [place] 21 lab order. Pt was advised if she chooses to have it done to please have both and [place] done together. Pt verbally understood. Follow Up: [...] or undercooked meat, and stay away from [facility]. Patient has also been advised to [...] Valerie Randolph MA documented in this encounter [facility] 03-12-2023 Hospital Discharg e instructions Patient Education [...] Follow these instructions at home: Medicines Take seuf-cys-hvciemh and prescription medicines only as told by [...] and water are not available, use hand retail sales lead. Do not touch your eyes, nose, or [...] provider. Document Revised: 12/18/2021 Document Reviewed: 12/18/2021 [employer] Patient Education 2022 [employer]. 03/12/2023 11:56:32 BMI for Adults BMI for [...] numbers. This can be done either in [place] ([place] or metric measurements. Note that charts and online BMI calculators are available to help you find your BMI quickly and easily without having to do these calculations yourself. To calculate your BMI in [place] ([place] measurements: 1.Measure your weight in pounds [...] Centers for Disease Control and Prevention: www.cdc.gov [employer] Heart Association: www.heart.org National Heart, Lung, and Blood [place]: www.nhlbi.nih.gov Summary Body mass index (BMI) is a number that is calculated from a person's weight and height. BMI may help estimate how much of a person's weight is composed of fat. BMI can help identify those who may be at higher risk for certain medical problems. BMI can be measured using Monegasque measurements or metric measurements. BMI charts are used to identify whether you are underweight, normal weight, overweight, or obese. This information is not intended to replace advice given to you by your health care provider. Make sure you discuss any questions you have with your health care provider. Document Revised: 06/13/2020 Document Reviewed: 04/20/2020 [employer] Patient Education 2022 [employer]. Follow Up Care 03/12/2023 11:01:27 With:ELLEN VALERO DO Address: [facility] [address] [address]- When: Unknown [facility] [employer] 11-28-2022 History of Presen t illness Narrative The patient was educated on the use of a holter monitor. The patient's comprehension was high. The patient was able to verbalize recall. The patient was instructed on how and when to return the monitor. documented in this encounter [employer] Phone: Evaluation + Plan note No data available for this section [facility] [employer] Evaluation note Diagnosis Screening for cardiovascular condition Screening for other and unspecified cardiovascular conditions Family history of diabetes mellitus Irregular menses Irregular menstrual cycle Chronic fatigue Other malaise and fatigue documented in this encounter [employer] Phone: evalhafdmn note* Diagnosis Irregular menses Irregular menstrual cycle documented in this encounter [employer] Phone: evalnyrtbm note* Diagnosis Bradycardia Other specified cardiac dysrhythmias Intermittent lightheadedness Dizziness and giddiness documented in this encounter [employer] Phone: evaluation note* Diagnosis Bradycardia Other specified cardiac dysrhythmias Intermittent lightheadedness Dizziness and giddiness documented in this encounter [employer] Phone: evaluation note* Diagnosis Bigeminy Other specified cardiac dysrhythmias Frequent PVCs Other premature beats Bradycardia Other specified cardiac dysrhythmias documented in this encounter [employer] Phone: evaluation note* Diagnosis Loud snoring Sleep apnea, unspecified type Palpitations Acquired hypothyroidism Unspecified hypothyroidism documented in this encounter [employer] Work Phone: evaluation note* Diagnosis Missed period Irregular menstrual cycle documented in this encounter [facility] [employer] note* Diagnosis Spotting affecting in first trimester documented in this encounter [facility] [employer] note* Diagnosis Spotting affecting in first trimester documented in this encounter [facility] [employer] note* Diagnosis Spotting affecting in first trimester Empty gestational sac with ongoing Other abnormal products of conception documented in this encounter [facility]* Diagnosis Spotting affecting in first trimester Empty gestational sac with ongoing Other abnormal products of conception documented in this encounter [facility] note* Diagnosis Missed menses 7 weeks gestation of , unspecified gestational age Encounter for supervision of normal first in first trimester documented in this encounter [facility] No data available for this section [facility] Advance Directives Documents on File Type Date Recorded Patient Retail Consultant Expl anation ACP-Advance Directive ACP-Power of Flyer Builder Reason for Referral Specialty Diagnoses / Procedures Referred By Deedee carter Referred To Contact Diagnoses Bradycardia Intermittent lightheadedness Procedures Holter Monitor 48 Hour Ellen Valero DO [address] [place] [address] Referral ID Status Reason Start Date Expiration Date Visits Re quested Visits Authorized [id number] Closed 11/27/2022 11/27/2023 1 1 Specialty Diagnoses / Procedures Referred By Deedee t Referred To Contact Cardiology Diagnoses Bigeminy Frequent PVCs Bradycardia Procedures Echocardiogram complete Ellen Valero DO [address] [place] [address] Referral ID Status Reason Start Date Expiration Date Visits Requested Visits Authorized [id number] No Precertification Needed 12/04/2022 12/03/2023 1 1 Specialty Diagnoses / Procedures Referred By Deedee carter Referred To Contact Cardiology Diagnoses Bigeminy Frequent PVCs Bradycardia Procedures CARDIAC STRESS TEST EXERCISE ONLY Ellen Valero DO [address] [place] [address] Referral ID Status Reason Start Date Expiration Date Visits Re quested Visits Authorized [id number] Closed 12/04/2022 12/03/2023 1 1 Specialty Diagnoses / Procedures Referred By Deedee t Referred To Contact Radiology Diagnoses Spotting affecting in first trimester Empty gestational sac with ongoing Procedures US OB TRANSVAGINAL Jongsaulnilson Ellen Mcduffie, DO [address] [place] [address] Referral ID Status Reason Start Date Expiration Date V isits Requested Visits Authorized [id number] Not Required - RTA 07/19/2024 07/19/2025 1 1 Summary Purpose Family History No Family History Records FoundNo Family History Records FoundNo Family History Records FoundNo Family History Records Found Additional Source Comments Care Teams (unrecognized sec tion and content) Wireless Engineer Relationship Specialty Start Date End Date Ellen Valero, DO [address] [place] [address] PCP - General Family Medicine 02/20/21 Wireless Engineer Relationship Specialty Start Date End Date JongEllen armenta, DO [address] [place] [address] PCP - General Family Medicine 02/20/21 Wireless Engineer Relationship Specialty Start Date End Date Ellen Valero, DO [address] [place] [address] PCP - General Family Medicine 02/20/21 Wireless Engineer Relationship Specialty Start Date End Date JongEllen armenta, DO [address] [place] [address] PCP - General Family Medicine 02/20/21 Wireless Engineer Relationship Specialty Start Date End Date Ellen Valero, DO [address] [place] [address] PCP - General Family Medicine 02/20/21 Wireless Engineer Relationship Specialty Start Date End Date MaryluRellEllen Froy [address] [place] [address] PCP - General Family Medicine 02/20/21 Wireless Engineer Relationship Specialty Start Date End Date Ellen Valero DO [address] [place] [address] PCP - General Family Medicine 02/20/21 Wireless Engineer Relationship Specialty Start Date End Date Ellen Valero DO [address] [place] [address] PCP - General Family Medicine 02/20/21 Wireless Engineer Relationship Specialty Start Date End Date Ellen Valero DO [address] [place] [address] PCP - General Internal Medicine 07/29/24 Wireless Engineer Relationship Specialty Start Date End Date Ellen Valero [address] [place] [address] PCP - General Internal Medicine 07/29/24 Reason for Visit (unrecogniz ed section and content) Specialty Diagnoses / Procedures Referred By Contoskar t Referred To Contact Diagnoses Bradycardia Intermittent lightheadedness Procedures Holter Monitor 48 Hour Ellen Valero DO [address] [place] [address] Referral ID Status Reason Start Date Expiration Date Visits Re quested Visits Authorized [id number] Closed 11/27/2022 11/27/2023 1 1 Specialty Diagnoses / Procedures Referred By Contac t Referred To Contact Cardiology Diagnoses Bigeminy Frequent PVCs Bradycardia Procedures Echocardiogram complete JongEllen armenta, DO [address] [place] [address] Referral ID Status Reason Start Date Expiration Date Visits Requested Visits Authorized [id number] No Precertification Needed 12/04/2022 12/03/2023 1 1 Specialty Diagnoses / Procedures Referred By Contac t Referred To Contact Cardiology Diagnoses Bigeminy Frequent PVCs Bradycardia Procedures CARDIAC STRESS TEST EXERCISE ONLY Ellen Valero, DO [address] [place] [address] Referral ID Status Reason Start Date Expiration Date Visits Re quested Visits Authorized [id number] Closed 12/04/2022 12/03/2023 1 1 Specialty Diagnoses / Procedures Referred By Contac t Referred To Contact Radiology Diagnoses Spotting affecting in first trimester Procedures US NON OB TRANSVAGINAL W DOPPLER US OB TRANSVAGINAL Ellen Valero, DO [address] [place] [address] Referral ID Status Reason Start Date Expiration Date Visits Re quested Visits Authorized [id number] Open 07/13/2024 07/13/2025 1 1 Specialty Diagnoses / Procedures Referred By Contac t Referred To Contact Radiology Diagnoses Spotting affecting in first trimester Empty gestational sac with ongoing Procedures US OB TRANSVAGINAL Ellen Valero, DO [address] [place] [address] Referral ID Status Reason Start Date Expiration Date V isits Requested Visits Authorized [id number] Not Required - RTA 07/19/2024 07/19/2025 1 1 Reason Comments Amenorrhea INFORMATION SOURCE (unrecogn ized section and content) DATE CREATED AUTHOR 12/17/2023 [facility] DATE CREATED AUTHOR AUTHOR'S SUNDAYIZ ATION 07/21/2024 [facility] DATE CREATED AUTHOR AUTHOR'S ORGANIZ ATION 07/25/2024 [facility] DATE CREATED AUTHOR AUTHOR'S ORGANIZ ATION 07/30/2024 [facility] FOR RECORDS PERTAINING TO PATIENTS WHO ARE [...] BE BASED ON THE PRIMARY CLINICAL RECORDS. [email or web address] provides no warranty or guarantee of the accuracy or completeness of information in this document.
[2024-08-24 06:31] LABS: Basophils Absolute Auto 0.1 10^3/uL (0.0-0.1); Basophils Percent Auto 0.4 % (0.2-2.0); Eosinophils Absolute Auto 0.3 10^3/uL (0.0-0.7); Eosinophils Percent Auto 2.1 % (0.9-7.0); Immature Granulocytes Pct Auto 0.8 % (0.0-0.5); Lymphocytes Absolute Auto 3.2 10^3/uL (1.2-3.8); Lymphocytes Percent Auto 26.4 % (20.5-60.0); Mean Corpuscular HGB Conc 36.6 g/dL (29.9-35.2); Mean Corpuscular Volume 87.4 fL (81.0-99.0); Mean Platelet Volume 10.4 fL (9.5-13.5); Monocytes Absolute Auto 0.9 10^3/uL (0.3-0.8); Monocytes Percent Auto 7.6 % (1.7-12.0); Neutrophils Absolute Auto 7.6 10^3/uL (1.4-6.5); Neutrophils Percent Auto 62.7 % (43.0-75.0); Platelet Count 247 10^3/uL (150-450); Red Blood Count 4.69 10^6/uL (4.20-5.40); Red Cell Distribution Width 11.5 % (11.0-15.0); White Blood Count 12.2 10^3/uL (4.0-11.0)
[2024-08-24] MEDS: LACTATED RINGER'S SOLUTION 1,000 ML 50 ML IV ×2 (07:02→08:07)
[2024-08-24 07:29] LABS: HCG Quantitative 5256 mIU/mL
--- NOTE | 2024-08-24 08:08 | PM.ONB ---
Brief Operative Note Date of procedure: 08/24/24 Pre-op diagnosis general: missed first trimester Post-op diagnosis: same as pre-op Procedure: NAME OF PROCEDURE: [D&C suction ] PROCEDURE: The patient was taken back to the OR where she was given general anesthesia without difficulty. She was then placed in dorsal lithotomy position, prepped and draped in the normal sterile fashion. A weighted speculum was placed in the patient's vagina and the anterior lip of the cervix was identified and grasped with a single-tooth tenaculum. The patient was then gently dilated using Hegar dilators after we had sounded roughly to 12 cm. The suction curette was then tested. The suction curette was then placed in the patient's uterus and products of conception were removed using an 10-Monegasque suction curette. ?Excellent hemostasis was noted. The patient tolerated the procedure well. Sponge, lap, and needle counts were correct x 2. All instruments were then removed from the patient's vagina. The patient was taken to the Recovery Room in stable condition. ?? Anesthesia: IZABELLAA Surgeon: Farhat Benites Estimated blood loss (mL): 25 Pathology: other (poc) Condition: stable Disposition: PACU Urinary Catheter Management Urinary Catheter Management Straight: Cath placed during this visit: no
[2024-08-24] MEDS: HYDROCODONE/ACET 5-325 MG TABLET 1 TAB PO (08:38)
[2024-08-24] MEDS: KETOROLAC TROMETHAMINE 30 MG/ML VIAL IVP (08:38)
== END 2024-08-24 09:50 | disposition home or self-care (01) ==
PROVIDERS: PCP Student in an Organized Health Care Education/Training Program; Visit Provider Obstetrics & Gynecology
PROC: (CPT 1965; principal; 2024-08-24 07:30)
DX: O02.1 Missed abortion (principal)
CPT/HCPCS: 59820; 36415; 84702; 85025; 88305; J1100; J1885; J2250; J2371; J2405; J2590; J2704; J3010